=== PATIENT | male | born 1995 | race American Indian/Alaskan Native ===

== ENCOUNTER 2021-05-06 12:40 | Emergency (ER) | payer MEDICAID ==
--- NOTE | 2021-05-06 12:40 | EDM.PDOC ---
ED HPI GENERAL MEDICAL PROBLEM - General Chief Complaint: Neurological Problem Stated Complaint: Seizure Time Seen by Provider: 05/06/21 12:40 Source of Information: Reports: EMS, Old Records, RN, RN Notes Reviewed, Other ([facility] caregiver) History Limitations: Reports: Physical Impairment (No verbal patient, Hx severe M.R.) - History of Present Illness INITIAL COMMENTS - FREE TEXT/NARRATIVE: Pt arrives to ER from [facility] by [facility] with report that pt had a witnessed seizure. Pt is non-verbal at baseline and unable to provide any history. Caregiver states pt had a seizure consisting of mild twitching and posturing. The seizure seemed like it had stopped after a minute or so, but then started again. The seizure would then come and go several times, then persisted for 5 minutes at which time they gave Diazepam 5mg per their protocol. In total the seizure activity lasted 16 minutes per the caregiver. Pt was sedated from the Diazepam, and is apparently fairly sedate at baseline, therefore it was unclear to [facility] staff or EMS it there was any postictal state or not. Onset: Today, Sudden Duration: Resolved Prior to Arrival Location: Reports: Generalized Severity: Severe Improves with: Reports: None Worsens with: Reports: None Associated Symptoms: Reports: No Other Symptoms Treatments MATRIX PLATER: Reports: Other Medication(s) (Diazepam 5mg) - Related Data Allergies Allergy/AdvReac Type Severity Reaction Status Date / Time No Known Allergies Allergy Verified 05/06/21 13:20 Home Meds: Home Meds Adapalene 45 gm TP DAILY 08/03/14 [History] Cetirizine [ZyrTEC] 10 mg PEGTUBE DAILY 08/03/14 [History] Levothyroxine Sodium [Synthroid] 75 mcg PEGTUBE DAILY 08/03/14 [History] Valproic Acid 10 ml PEGTUBE BID 08/03/14 [History] levETIRAcetam [Keppra] 2,000 mg PEGTUBE BID 08/03/14 [History] levOCARNitine [Biocarnitine Sf] 500 mg PEGTUBE TID 08/03/14 [History] Bisacodyl [Dulcolax] 1 supp RECTAL ASDIRECTED PRN 07/13/15 [History] Ketoconazole 1 dose TOP ASDIRECTED 07/13/15 [History] Magnesium Hydroxide [Milk of Magnesia Concentrated] 30 ml GTUBE ASDIRECTED PRN 07/13/15 [History] Multivits w-Min/Ferrous Gluc [Cerovite Liquid] 15 ml PO DAILY 07/13/15 [History] Sulfamethoxazole/Trimethoprim [Septra] 20 ml PO BEDTIME 07/13/15 [History] Cholecalciferol (Vitamin D3) [Vitamin D3] 1,000 mg PEGTUBE DAILY 08/07/15 [History] Menthol/Zinc Oxide [Calmoseptine] 3.5 gm TOP QID 08/07/15 [History] OXcarbazepine [Trileptal] 600 mg GTUBE BID 08/19/15 [History] diazePAM [Valium] 2 ml FTUBE Q8H PRN 08/22/15 [History] Ciclopirox [Loprox 1% Shampoo] 5 ml TP ASDIRECTED 05/06/21 [History] Clindamycin Phosphate [Cleocin T 1% Gel] 1 gm TOP DAILY 05/06/21 [History] Divalproex Sodium [Depakote] 500 mg PEGTUBE BID 05/06/21 [History] Zinc 50 mg PEGTUBE DAILY 05/06/21 [History] Past Medical History HEENT History: Reports: Other (See Below) Other HEENT History: cortical blindness Cardiovascular History: Reports: None Respiratory History: Reports: None Gastrointestinal History: Reports: Other (See Below) Other Gastrointestinal History: gastrostomy, G-tube Genitourinary History: Reports: None Musculoskeletal History: Reports: None (contractures) Neurological History: Reports: Cerebral Palsy, Seizure, Other (See Below) Other Neuro History: quadriplegia Psychiatric History: Reports: Developmental Delay Endocrine/Metabolic History: Reports: Hypothyroidism Hematologic History: Reports: None Immunologic History: Reports: None Oncologic (Cancer) History: Reports: None Dermatologic History: Reports: Other (See Below) Other Dermatologic History: seborrhea, acne - Past Surgical History Musculoskeletal Surgical History: Reports: Hip Replacement Social & Family History - Family History Family Medical History: Unobtainable Cardiac: Reports: None Respiratory: Reports: None GI: Reports: None - Tobacco Use Tobacco Use Status *Q: Never Tobacco User - Living Situation & Occupation Living situation: Reports: Extended Care Facility Occupation: Disabled ED ROS GENERAL - Review of Systems Review Of Systems: Unable To Obtain Reason Not Obtained: non-verbal pt - Physical Exam Exam: See Below Exam Limited By: Physical Impairment General Appearance: WD/WN, Other (Sedate, nonverbal) Eye Exam: Bilateral Eye: Normal Inspection Ears: Normal External Exam Nose: Normal Inspection, No Blood Throat/Mouth: No Airway Compromise, Other. No: Evidence of Tongue Biting Head Exam: Atraumatic, Normocephalic Neck: Normal Inspection Respiratory/Chest: No Respiratory Distress, Lungs Clear Cardiovascular: Regular Rate, Rhythm GI/Abdominal: Normal Bowel Sounds, Soft, Non-Tender (Male) Exam: Deferred Rectal (Males) Exam: Deferred Neuro Exam (Abbreviated): Other (Sedate, no obvious acute deficits. No seizure activity while in ER.) Extremities: Other (Atraumatic. Chronic flexion contractures.) Skin Exam: Warm, Dry, No Rash Course - Vital Signs Last Recorded V/S: Last Vital Signs Temp 97.2 F 05/06/21 13:05 Pulse 70 05/06/21 13:05 Resp 16 05/06/21 13:05 BP 111/86 05/06/21 13:05 Pulse Ox 95 05/06/21 13:05 - Orders/Labs/Meds Orders: Active Orders 24 hr Category Date Time Status Peripheral IV Care [RC] . DIRECTED Care 05/06/21 12:44 Active LEVETIRACETAM, S [REF] Stat Lab 05/06/21 13:00 Received UA RFX KEANU AND CULT IF INDIC [URIN] Stat Lab 05/06/21 12:43 Ordered VALPROIC ACID [REF] Stat Lab 05/06/21 13:00 Received Sodium Chloride 0.9% [Normal Saline] 1,000 ml Med 05/06/21 12:45 Active IV .BOLUS Sodium Chloride 0.9% [Saline Flush] Med 05/06/21 12:44 Active 10 ml FLUSH ASDIRECTED PRN Peripheral IV Insertion Adult [OM.PC] Stat Oth 05/06/21 12:43 Ordered Medication Orders Sodium Chloride (Normal Saline) 1,000 mls @ 999 mls/hr IV .BOLUS ONE Stop: 05/06/21 13:45 Sodium Chloride (Sodium Chloride 0.9% 10 Ml Syringe) 10 ml FLUSH ASDIRECTED PRN PRN Reason: Keep Vein Open Labs: Laboratory Tests 10/05/21 10/05/21 Range/Units 13:00 13:00 WBC 5.5 (5.0-10.0) 10^3/uL RBC 4.16 L (4.6-6.2) 10^6/uL Hgb 12.8 L (14.0-18.0) g/dL Hct 37.0 L (40.0-54.0) % MCV 88.9 D (80-100) fL MCH 30.8 (27.0-34.0) pg MCHC 34.6 (33.0-35.0) g/dL Plt Count 210 (150-450) 10^3/uL Neut % (Auto) 55.0 (42.2-75.2) % Lymph % (Auto) 31.0 (20.5-50.1) % [place] % (Auto) 12.7 H (2-8) % Eos % (Auto) 1.1 (1.0-3.0) % Baso % (Auto) 0.2 (0.0-1.0) % Sodium 134 L (136-145) mmol/L Potassium 4.5 (3.5-5.1) mmol/L Chloride 96 L (98-107) mmol/L Carbon Dioxide 29 (21-32) mmol/L Anion Gap 13.5 H (7-13) mEq/L BUN 8 (7-18) mg/dL Creatinine 0.46 L (0.70-1.30) mg/dL Est Cr Clr Drug Dosing 217.68 mL/min Estimated GFR (MDRD) > 60 BUN/Creatinine Ratio 17.4 (No establ ref range) Glucose 71 (70-99) mg/dL Calcium 9.2 (8.5-10.1) mg/dL Magnesium 2.0 (1.8-2.4) mg/dL Total Bilirubin 0.2 (0.2-1.0) mg/dL AST 14 L (15-37) U/L ALT 28 (16-63) U/L Alkaline Phosphatase 61 (46-116) U/L Lactate Dehydrogenase 139 (85-227) U/L Creatine Kinase 122 (39-308) U/L C-Reactive Protein 1.4 H (0.0-0.9) mg/dL Total Protein 8.3 H (6.4-8.2) g/dL Albumin 3.9 (3.4-5.0) g/dL Globulin 4.4 Albumin/Globulin Ratio 0.9 Meds: Medications Generic Name Dose Route Start Last Admin Trade Name Freq PRN Reason Stop Dose Admin Sodium Chloride 1,000 mls @ 999 mls/hr 05/06/21 12:45 Normal Saline IV 05/06/21 13:45 .BOLUS ONE Sodium Chloride 10 ml 05/06/21 12:44 Sodium Chloride 0.9% 10 Ml Syringe FLUSH ASDIRECTED PRN Keep Vein Open Discontinued Medications Generic Name Dose Route Start Last Admin Trade Name Freq PRN Reason Stop Dose Admin Levetiracetam 1,500 mg/ Premix 300 mls @ 1,200 mls/hr 05/06/21 12:45 IV 05/06/21 12:46 ONETIME ONE Levetiracetam Confirm 05/06/21 13:33 Levetiracetam In Nacl (Iso-Os) Administered 05/06/21 13:34 Dose 300 mls @ as directed .ROUTE .STK-MED ONE Departure - Departure Time of Disposition: 14:00 Disposition: Home, Self-Care 01 Condition: Good Clinical Impression: Seizure - Discharge Information *PRESCRIPTION DRUG MONITORING PROGRAM REVIEWED*: No *COPY OF PRESCRIPTION DRUG MONITORING REPORT IN PATIENT LILLIE: No Instructions: Seizure, Adult, [id number] Forms: ED Department Discharge Additional Instructions: No change to medication regimen. Follow up with neurologist if there is an increase in seizure frequency or pattern. Sepsis Event Note (ED) - Focused Exam Vital Signs: Vital Signs Temp Pulse Resp BP Pulse Ox 05/06/21 13:05 97.2 F 70 16 111/86 95 - My Orders Last 24 Hours: My Active Orders 05/06/21 12:43 UA RFX KEANU AND CULT IF INDIC [URIN] Stat Peripheral IV Insertion Adult [OM.PC] Stat 05/06/21 12:44 Peripheral IV Care [RC] . DIRECTED Sodium Chloride 0.9% [Saline Flush] 10 ml FLUSH ASDIRECTED PRN 05/06/21 12:45 Sodium Chloride 0.9% [Normal Saline] 1,000 ml IV .BOLUS 05/06/21 13:00 LEVETIRACETAM, S [REF] Stat VALPROIC ACID [REF] Stat - Assessment/Plan Last 24 Hours: My Active Orders 05/06/21 12:43 UA RFX KEANU AND CULT IF INDIC [URIN] Stat Peripheral IV Insertion Adult [OM.PC] Stat 05/06/21 12:44 Peripheral IV Care [RC] . DIRECTED Sodium Chloride 0.9% [Saline Flush] 10 ml FLUSH ASDIRECTED PRN 05/06/21 12:45 Sodium Chloride 0.9% [Normal Saline] 1,000 ml IV .BOLUS 05/06/21 13:00 LEVETIRACETAM, S [REF] Stat VALPROIC ACID [REF] Stat
[2021-05-06] MEDS ORDERED: Sodium Chloride 0.9% 10 ML Syringe FLUSH PRN (12:44)
[2021-05-06] MEDS ORDERED: Sodium Chloride 0.9% 1,000 ML IV ONE (12:45)
[2021-05-06] MEDS ORDERED: levETIRAcetam in NaCl (iso-os) 1,500 MG in Premix Bag 1 BAG IV ONE ×2 (12:45)
[2021-05-06 13:13] VITALS: BP 111/86; PULSE 70
[2021-05-06 13:28] LABS: ANION GAP 13.5 mEq/L (7-13); CHLORIDE,CL 96 mmol/L (98-107); SODIUM,NA 134 mmol/L (136-145)
== END 2021-05-06 14:50 | disposition home or self-care (01) ==
LOC: DL.ED 12:40
DX: R56.9 Unspecified convulsions (principal); E03.9 Hypothyroidism, unspecified; Z79.899 Other long term (current) drug therapy
CPT/HCPCS: 36415; 80053; 80164; 80177; 81001; 82550; 83615; 83735; 85025; 86140; 96374; 99285-25; J1953; J7030

== ENCOUNTER 2021-07-13 07:08 | Emergency (ER) | payer MEDICAID ==
[2021-07-13 07:22] VITALS: BP 112/62; PULSE 58
[2021-07-13] MEDS ORDERED: levETIRAcetam in NaCl (iso-os) 500 MG in Premix Bag 1 BAG IV ONE ×2 (07:48)
--- NOTE | 2021-07-13 07:58 | EDM.PDOC ---
ED HPI GENERAL MEDICAL PROBLEM - General Chief Complaint: Neuro Symptoms/Deficits Stated Complaint: AMBULANCE Time Seen by Provider: 07/13/21 07:40 Source of Information: Reports: Provider ([facility] home provider) History Limitations: Reports: Other (Non verbal) - History of Present Illness INITIAL COMMENTS - FREE TEXT/NARRATIVE: This 26 yo male patient was brought to the ED by [facility] due to a seizure. The patient's night care provider reports she had just given the patient his medications via his feeding tube and was cleaning the med cart. The provider reports she heard a noise from the patient then noticed his right leg was stretched out and the left arm was "shaking". The provider also reports the patient's eyes had rolled up. The entire episode lasted 22 minutes and the pa tient was given Valium per protocol. Upon arrival, the patient had no seizure activity, but was sedated by medications given at [facility] Home. Onset: Today Duration: Minutes: (22), Constant, Resolved Prior to Arrival Location: Reports: Other (as described in narrative) Quality: Reports: Other Severity: Moderate Improves with: Reports: Medication Worsens with: Reports: None Context: Reports: Other - Related Data Allergies Allergy/AdvReac Type Severity Reaction Status Date / Time No Known Allergies Allergy Verified 07/13/21 07:23 Home Meds: Home Meds Adapalene 45 gm TP DAILY 08/03/14 [History] Cetirizine [ZyrTEC] 10 mg GTUBE DAILY 08/03/14 [History] Levothyroxine Sodium [Synthroid] 75 mcg GTUBE DAILY 08/03/14 [History] Valproic Acid 375 mg PEGTUBE BID 08/03/14 [History] levETIRAcetam [Keppra] 2,000 mg GTUBE BID 08/03/14 [History] levOCARNitine [Biocarnitine Sf] 500 mg PEGTUBE TID 08/03/14 [History] Bisacodyl [Dulcolax] 1 supp RECTAL ASDIRECTED PRN 07/13/15 [History] Ketoconazole 1 dose TOP ASDIRECTED 07/13/15 [History] Magnesium Hydroxide [Milk of Magnesia Concentrated] 30 ml GTUBE ASDIRECTED PRN 07/13/15 [History] Cholecalciferol (Vitamin D3) [Vitamin D3] 1,000 mg GTUBE DAILY 08/07/15 [History] Menthol/Zinc Oxide [Calmoseptine] 3.5 gm TOP QID 08/07/15 [History] OXcarbazepine [Trileptal] 600 mg GTUBE BID 08/19/15 [History] diazePAM [Valium] 2 ml GTUBE Q8H PRN 08/22/15 [History] Ciclopirox [Loprox 1% Shampoo] 5 ml TP ASDIRECTED 05/06/21 [History] Clindamycin Phosphate [Cleocin T 1% Gel] 1 gm TOP DAILY 05/06/21 [History] Divalproex Sodium [Depakote] 500 mg GTUBE BID 05/06/21 [History] Calcium Carb/Mag Ox/Zinc Gluc [Qiyyxod-Capriuqfs-Ujuw] 1 tab GTUBE DAILY 07/13/21 [History] Past Medical History HEENT History: Reports: Other (See Below) Other HEENT History: cortical blindness Cardiovascular History: Reports: None Respiratory History: Reports: None Gastrointestinal History: Reports: Chronic Constipation, Other (See Below) Other Gastrointestinal History: gastrostomy, G-tube Genitourinary History: Reports: Urinary Incontinence Musculoskeletal History: Reports: None Neurological History: Reports: Cerebral Palsy, Seizure, Other (See Below) Other Neuro History: quadriplegia Psychiatric History: Reports: Developmental Delay Endocrine/Metabolic History: Reports: Hypothyroidism Hematologic History: Reports: None Immunologic History: Reports: None Oncologic (Cancer) History: Reports: None Dermatologic History: Reports: Other (See Below) Other Dermatologic History: seborrhea, acne - Infectious Disease History Infectious Disease History: Reports: None - Past Surgical History Musculoskeletal Surgical History: Reports: Hip Replacement Other Musculoskeletal Surgeries/Procedures:: contractures of both arms Social & Family History - Family History Family Medical History: Unobtainable Cardiac: Reports: None Respiratory: Reports: None GI: Reports: None - Tobacco Use Tobacco Use Status *Q: Never Tobacco User - Caffeine Use Caffeine Use: Reports: None - Recreational Drug Use Recreational Drug Use: No - Living Situation & Occupation Living situation: Reports: Extended Care Facility Occupation: Disabled ED ROS GENERAL - Review of Systems Review Of Systems: Comprehensive ROS is negative, except as noted in HPI. - Physical Exam Exam: See Below Exam Limited By: Other (Non-verbal) General Appearance: Other (sedated from medications given for seizure) Eye Exam: Bilateral Eye: Other (Pupils were sluggish) Ears: Normal External Exam, Normal Canal, Hearing Grossly Normal, Normal TMs Nose: Normal Inspection, Normal Mucosa, No Blood Throat/Mouth: Normal Inspection, Normal Lips, Normal Teeth, Normal Gums, Normal Oropharynx, Normal Voice, No Airway Compromise Head Exam: Atraumatic, Normocephalic Neck: Normal Inspection Respiratory/Chest: No Respiratory Distress, Lungs Clear, Normal Breath Sounds, No Accessory Muscle Use, Chest Non-Tender Cardiovascular: Normal Peripheral Pulses, Regular Rate, Rhythm, No Edema, No Gallop, No JVD, No Murmur, No Rub GI/Abdominal: Other (PEG tube site was erythematous with debbie) (Male) Exam: Deferred Rectal (Males) Exam: Deferred Neuro Exam (Abbreviated): Other (The patient was sedated, but non-verbal at baseline) Back Exam: Normal Inspection, Full Range of Motion, NT Extremities: Normal Inspection, Normal Range of Motion, Non-Tender, No Pedal Edema, Normal Capillary Refill Psychiatric: Normal Affect, Normal Mood Skin Exam: Warm, Dry, Intact, Normal Color, No Rash Course - Vital Signs Last Recorded V/S: Last Vital Signs Temp 96.7 F L 07/13/21 07:21 Pulse 58 L 07/13/21 07:21 Resp 16 07/13/21 07:21 BP 112/62 07/13/21 07:21 Pulse Ox 94 L 07/13/21 07:21 - Orders/Labs/Meds Orders: Active Orders 24 hr Category Date Time Status CULTURE BLOOD [BC] Stat Lab 07/13/21 07:36 Received CULTURE WOUND [RM] Stat Lab 07/13/21 07:20 Received LEVETIRACETAM, S [REF] Urgent Lab 07/13/21 07:36 Received REFLEX LACTIC ACID YES OR NO [CHEM] Routine Lab 07/13/21 08:09 Received UA RFX KEANU AND CULT IF INDIC [URIN] Urgent Lab 07/13/21 07:23 Ordered Labs: Laboratory Tests 07/13/21 07/13/21 07/13/21 Range/Units 07:36 07:36 07:36 WBC 5.9 (5.0-10.0) 10^3/uL RBC 3.89 L (4.6-6.2) 10^6/uL Hgb 11.9 L (14.0-18.0) g/dL Hct 34.2 L (40.0-54.0) % MCV 87.9 (80-100) fL MCH 30.6 (27.0-34.0) pg MCHC 34.8 (33.0-35.0) g/dL Plt Count 185 (150-450) 10^3/uL Neut % (Auto) 40.7 L (42.2-75.2) % Lymph % (Auto) 45.6 (20.5-50.1) % [place] % (Auto) 11.3 H (2-8) % Eos % (Auto) 2.2 (1.0-3.0) % Baso % (Auto) 0.2 (0.0-1.0) % Sodium 126 L (136-145) mmol/L Potassium 4.0 (3.5-5.1) mmol/L Chloride 90 L (98-107) mmol/L Carbon Dioxide 26 (21-32) mmol/L Anion Gap 14.0 H (7-13) mEq/L BUN 7 (7-18) mg/dL Creatinine 0.36 L (0.70-1.30) mg/dL Est Cr Clr Drug Dosing 275.68 mL/min Estimated GFR (MDRD) > 60 BUN/Creatinine Ratio 19.4 (No establ ref range) Glucose 88 (70-99) mg/dL Lactic Acid 2.4 H* (0.4-2.0) mmol/L Calcium 8.8 (8.5-10.1) mg/dL Total Bilirubin 0.2 (0.2-1.0) mg/dL AST 22 (15-37) U/L ALT 30 (16-63) U/L Alkaline Phosphatase 50 (46-116) U/L Total Protein 7.3 (6.4-8.2) g/dL Albumin 3.4 (3.4-5.0) g/dL Globulin 3.9 Albumin/Globulin Ratio 0.9 Meds: Medications Discontinued Medications Generic Name Dose Route Start Last Admin Trade Name Freq PRN Reason Stop Dose Admin Levetiracetam 500 mg/ Premix 100 mls @ 400 mls/hr 07/13/21 07:48 07/13/21 07:57 IV 07/13/21 07:49 400 mls/hr ONETIME ONE Administration Departure - Departure Time of Disposition: 08:56 Disposition: Home, Self-Care 01 Condition: Fair Clinical Impression: Seizure - Discharge Information *PRESCRIPTION DRUG MONITORING PROGRAM REVIEWED*: Not Applicable *COPY OF PRESCRIPTION DRUG MONITORING REPORT IN PATIENT LILLIE: Not Applicable Instructions: Seizure, Adult, [id number] Forms: ED Department Discharge Care Plan Goals: The patient's caregiver was advised of the examination and lab results during the visit. The patient was given an IV dose of Keppra while in the ED. There will be additional lab results available on Wednesday or Wednesday (Keppra level). The patient's sodium level was again low during the visit today (similar to previous visits). If the patient has any additional symptoms or concerns, the patient should either return to the emergency department or visit his primary care facility. Sepsis Event Note (ED) - Evaluation Sepsis Screening Result: No Definite Risk - Focused Exam Vital Signs: Vital Signs Temp Pulse Resp BP Pulse Ox 07/13/21 07:21 96.7 F L 58 L 16 112/62 94 L - My Orders Last 24 Hours: My Active Orders 07/13/21 07:20 CULTURE WOUND [RM] Stat 07/13/21 07:23 UA RFX KEANU AND CULT IF INDIC [URIN] Urgent 07/13/21 07:36 CULTURE BLOOD [BC] Stat LEVETIRACETAM, S [REF] Urgent 07/13/21 08:09 REFLEX LACTIC ACID YES OR NO [CHEM] Routine - Assessment/Plan Last 24 Hours: My Active Orders 07/13/21 07:20 CULTURE WOUND [RM] Stat 07/13/21 07:23 UA RFX KEANU AND CULT IF INDIC [URIN] Urgent 07/13/21 07:36 CULTURE BLOOD [BC] Stat LEVETIRACETAM, S [REF] Urgent 07/13/21 08:09 REFLEX LACTIC ACID YES OR NO [CHEM] Routine
[2021-07-13 08:04] LABS: CHLORIDE,CL 90 mmol/L (98-107); SODIUM,NA 126 mmol/L (136-145)
== END 2021-07-13 09:25 | disposition home or self-care (01) ==
LOC: DL.ED 07:08
DX: R56.9 Unspecified convulsions (principal); E03.9 Hypothyroidism, unspecified; Z79.899 Other long term (current) drug therapy
CPT/HCPCS: 36415; 80053; 80177; 83605; 85025; 87040; 87070; 87077; 87186; 96374; 99284; J1953

== ENCOUNTER 2021-07-17 09:10 | Emergency (ER) | payer MEDICAID ==
[2021-07-17 09:16] VITALS: BP 107/60; PULSE 51
--- NOTE | 2021-07-17 09:30 | EDM.PDOC ---
ED HPI GENERAL MEDICAL PROBLEM - General Chief Complaint: Neuro Symptoms/Deficits Stated Complaint: AMBULANCE Time Seen by Provider: 07/17/21 09:29 Source of Information: Reports: EMS, Old Records, Provider (SWETHA Barrios at [facility])), RN, RN Notes Reviewed History Limitations: Reports: Language Barrier (Cognitive delays at baseline) - History of Present Illness INITIAL COMMENTS - FREE TEXT/NARRATIVE: Shin is a 26 y/o male with a history of seizures and TBI who presents to the ED via [facility] at the request of his [place] [facility] staff [facility]. [facility] the patient was evaluated by his PCP four days ago and received a full physical exam given recent increase in seizure activity and length. She notes the patient was given his levetiracetam 2gm, divalproex 500mg, and oxcarbazepine 600mg this morning via his J-tube; he has not missed any doses. Denis states the patient was thought to be displaying seizure-like activity by a new staff member, however upon further discussion with the staff it may have been hand-flapping, as the patient is known to do. The patient was given diazepam 5mg IN en route. Upon arrival to this facility the patient is lethargic, however he is maintaining his airway with appropriate vital signs. - Related Data Allergies Allergy/AdvReac Type Severity Reaction Status Date / Time No Known Allergies Allergy Verified 07/13/21 07:23 Home Meds: Home Meds Adapalene 45 gm TP DAILY 08/03/14 [History] Cetirizine [ZyrTEC] 10 mg GTUBE DAILY 08/03/14 [History] Levothyroxine Sodium [Synthroid] 75 mcg GTUBE DAILY 08/03/14 [History] Valproic Acid 375 mg PEGTUBE BID 08/03/14 [History] levETIRAcetam [Keppra] 2,000 mg GTUBE BID 08/03/14 [History] levOCARNitine [Biocarnitine Sf] 500 mg PEGTUBE TID 08/03/14 [History] Bisacodyl [Dulcolax] 1 supp RECTAL ASDIRECTED PRN 07/13/15 [History] Ketoconazole 1 dose TOP ASDIRECTED 07/13/15 [History] Magnesium Hydroxide [Milk of Magnesia Concentrated] 30 ml GTUBE ASDIRECTED PRN 07/13/15 [History] Cholecalciferol (Vitamin D3) [Vitamin D3] 1,000 mg GTUBE DAILY 08/07/15 [History] Menthol/Zinc Oxide [Calmoseptine] 3.5 gm TOP QID 08/07/15 [History] OXcarbazepine [Trileptal] 600 mg GTUBE BID 08/19/15 [History] diazePAM [Valium] 2 ml GTUBE Q8H PRN 08/22/15 [History] Ciclopirox [Loprox 1% Shampoo] 5 ml TP ASDIRECTED 05/06/21 [History] Clindamycin Phosphate [Cleocin T 1% Gel] 1 gm TOP DAILY 05/06/21 [History] Divalproex Sodium [Depakote] 500 mg GTUBE BID 05/06/21 [History] Calcium Carb/Mag Ox/Zinc Gluc [Ykcclye-Qqzcjbwny-Bnzp] 1 tab GTUBE DAILY 07/13/21 [History] Past Medical History HEENT History: Reports: Other (See Below) Other HEENT History: cortical blindness Cardiovascular History: Reports: None Respiratory History: Reports: None Gastrointestinal History: Reports: Chronic Constipation, Other (See Below) Other Gastrointestinal History: gastrostomy, G-tube Genitourinary History: Reports: Urinary Incontinence Musculoskeletal History: Reports: None Neurological History: Reports: Cerebral Palsy, Seizure, Other (See Below) Other Neuro History: quadriplegia Psychiatric History: Reports: Developmental Delay Endocrine/Metabolic History: Reports: Hypothyroidism Hematologic History: Reports: None Immunologic History: Reports: None Oncologic (Cancer) History: Reports: None Dermatologic History: Reports: Other (See Below) Other Dermatologic History: seborrhea, acne - Infectious Disease History Infectious Disease History: Reports: None - Past Surgical History Musculoskeletal Surgical History: Reports: Hip Replacement Other Musculoskeletal Surgeries/Procedures:: contractures of both arms Social & Family History - Family History Family Medical History: Unobtainable Cardiac: Reports: None Respiratory: Reports: None GI: Reports: None - Tobacco Use Tobacco Use Status *Q: Unknown Ever Used Tobacco - Caffeine Use Caffeine Use: Reports: None - Living Situation & Occupation Living situation: Reports: Extended Care Facility Occupation: Disabled ED ROS GENERAL - Review of Systems Review Of Systems: Comprehensive ROS is negative, except as noted in HPI. - Physical Exam Exam: See Below Exam Limited By: Physical Impairment (TBI) General Appearance: Lethargic, Thin Eye Exam: Bilateral Eye: EOMI, Normal Inspection, PERRL (4mm) Ears: Normal External Exam, Normal Canal, Hearing Grossly Normal, Normal TMs Nose: Normal Inspection, Normal Mucosa, No Blood Throat/Mouth: Normal Inspection, Normal Teeth, Normal Oropharynx, Normal Voice, No Airway Compromise, Evidence of Tongue Biting Head Exam: Atraumatic, Normocephalic Neck: Normal Inspection, Supple, Full Range of Motion Respiratory/Chest: No Respiratory Distress, Lungs Clear, Normal Breath Sounds, No Accessory Muscle Use Cardiovascular: Normal Peripheral Pulses, Regular Rate, Rhythm, No Edema, No Gallop, No JVD, No Murmur, No Rub, Bradycardia GI/Abdominal: Normal Bowel Sounds, Soft, No Distention, No Abnormal Bruit, No Mass, Pelvis Stable, Other (J-tube in place, site clean and dry with dressing in place) (Male) Exam: Deferred Rectal (Males) Exam: Deferred Neuro Exam (Abbreviated): Other (Non-verbal at baseline; Lethargic) Extremities: No Pedal Edema, Normal Capillary Refill, Limited Range of Motion (Contractures to bilateral upper extremities), Other Skin Exam: Warm, Dry, Intact, Normal Color, No Rash. No: Cyanosis, Jaundice, Mottled, Pallor Course - Vital Signs Last Recorded V/S: Last Vital Signs Temp 96.6 F L 07/17/21 09:10 Pulse 51 L 07/17/21 09:10 Resp 12 07/17/21 09:10 BP 107/60 07/17/21 09:10 Pulse Ox 99 07/17/21 09:10 - Orders/Labs/Meds Labs: Laboratory Tests 07/17/21 07/17/21 07/17/21 Range/Units 09:28 09:28 09:28 WBC 8.3 (5.0-10.0) 10^3/uL RBC 3.86 L (4.6-6.2) 10^6/uL Hgb 11.8 L (14.0-18.0) g/dL Hct 34.5 L (40.0-54.0) % MCV 89.4 (80-100) fL MCH 30.6 (27.0-34.0) pg MCHC 34.2 (33.0-35.0) g/dL Plt Count 186 (150-450) 10^3/uL Neut % (Auto) 53.5 (42.2-75.2) % Lymph % (Auto) 30.5 (20.5-50.1) % Hubbard % (Auto) 15.0 H (2-8) % Eos % (Auto) 1.0 (1.0-3.0) % Baso % (Auto) 0.0 (0.0-1.0) % Sodium 133 L (136-145) mmol/L Potassium 3.7 (3.5-5.1) mmol/L Chloride 96 L (98-107) mmol/L Carbon Dioxide 29 (21-32) mmol/L Anion Gap 11.7 (7-13) mEq/L BUN 8 (7-18) mg/dL Creatinine 0.36 L (0.70-1.30) mg/dL Est Cr Clr Drug Dosing 235.93 mL/min Estimated GFR (MDRD) > 60 BUN/Creatinine Ratio 22.2 (No establ ref range) Glucose 93 (70-99) mg/dL Lactic Acid 1.6 (0.4-2.0) mmol/L Calcium 8.7 (8.5-10.1) mg/dL Magnesium 1.9 (1.8-2.4) mg/dL Total Bilirubin 0.2 (0.2-1.0) mg/dL AST 17 (15-37) U/L ALT 29 (16-63) U/L Alkaline Phosphatase 50 (46-116) U/L C-Reactive Protein < 0.2 (0.0-0.9) mg/dL Total Protein 7.3 (6.4-8.2) g/dL Albumin 3.4 (3.4-5.0) g/dL Globulin 3.9 Albumin/Globulin Ratio 0.9 - Radiology Interpretation Free Text/Narrative:: [facility] Final Radiology Report Call: [phone] assistance Online chat: [email or web address] Name: SHIN PIERRE Age: 26Years M Date: 07/17/2021 SSN: -- : [id number] Study: CT HEAD WO CONT Requesting Physician: Apple Stanford Images: 150 Addl Studies: Provided Clinical History: Seizures despite antiepileptics Contrast: Without Contrast Medium: Contrast Amount: Contrast Method: Page 1 of 2 PROCEDURE INFORMATION: Exam: CT Head Without Contrast Exam date and time: 07/17/2021 11:04 AM Age: 26 years old Clinical indication: Other: Seizures; Additional info: Seizures despite antiepileptics TECHNIQUE: Imaging protocol: Computed tomography of the head without contrast. Radiation optimization: All CT scans at this facility use at least one of these dose optimization techniques: automated exposure control; mA and/or kV adjustment per patient size (includes targeted exams where dose is matched to clinical indication); or iterative reconstruction. COMPARISON: No relevant prior studies available. FINDINGS: Brain: Prominent sulci. Patchy hypodensity of the cerebral white matter which are nonspecific but likely secondary to microangiopathic changes. Cerebral ventricles: The ventricles are prominent secondary to diffuse volume loss/atrophy. Paranasal sinuses: Visualized sinuses are unremarkable. No fluid levels. Mastoid air cells: Visualized mastoid air cells are well aerated. Bones/joints: Unremarkable. No acute fracture. Soft tissues: Unremarkable. IMPRESSION: Chronic age related changes but no evidence of acute intracranial pathology. Thank you for allowing us to participate in the care of your patient. Dictated and Authenticated by: Indiana Ramirez MD 07/17/2021 11:38 AM Central Time ([place] & [place]) - Re-Assessments/Exams Free Text/Narrative Re-Assessment/Exam: 07/17/[address] obtained given increase in seizure activity. Findings of examination, lab work, and imaging reviewed with SW[facility]HA Barrios from [facility]. Instructed to follow up with primary care provider and neurology regarding todays visit. Red flag signs and symptoms which would warrant immediate reevaluation reviewed. Denis verbalized understanding and agreement with the plan of care. Departure - Departure Time of Disposition: 11:47 Disposition: DC/Tfer to [facility] Condition: Fair Clinical Impression: Seizure, History of seizure - Discharge Information *PRESCRIPTION DRUG MONITORING PROGRAM REVIEWED*: Not Applicable *COPY OF PRESCRIPTION DRUG MONITORING REPORT IN PATIENT LILLIE: Not Applicable Instructions: Seizure, Adult Referrals: PCP,None [Primary Care Provider] - Forms: ED Department Discharge Additional Instructions: 1.) Continue on Shin's previously prescribed medications, including PRN epilepsy medications. 2.) Follow up with Dr. Mcclure's office regarding recent seizure activity; request his follow-up to be sooner than his previously scheduled 07/28/21. 3.) Continue on previous diet and activity recommendations. 4.) Return to the emergency department with any worsening symptoms or seizure activity that does not resolve with PRN antiepileptic medications. Sepsis Event Note (ED) - Evaluation Sepsis Screening Result: No Definite Risk
[2021-07-17 09:56] LABS: ANION GAP 11.7 mEq/L (7-13); CHLORIDE,CL 96 mmol/L (98-107); SODIUM,NA 133 mmol/L (136-145)
--- NOTE | 2021-07-17 11:39 | CT ---
PROCEDURE INFORMATION: Exam: CT Head Without Contrast Exam date and time: 07/17/2021 11:04 AM Age: 26 years old Clinical indication: Other: Seizures; Additional info: Seizures despite antiepileptics TECHNIQUE: Imaging protocol: Computed tomography of the head without contrast. Radiation optimization: All CT scans at this facility use at least one of these dose optimization techniques: automated exposure control; mA and/or kV adjustment per patient size (includes targeted exams where dose is matched to clinical indication); or iterative reconstruction. COMPARISON: No relevant prior studies available. FINDINGS: Brain: Prominent sulci. Patchy hypodensity of the cerebral white matter which are nonspecific but likely secondary to microangiopathic changes. Cerebral ventricles: The ventricles are prominent secondary to diffuse volume loss/atrophy. Paranasal sinuses: Visualized sinuses are unremarkable. No fluid levels. Mastoid air cells: Visualized mastoid air cells are well aerated. Bones/joints: Unremarkable. No acute fracture. Soft tissues: Unremarkable. IMPRESSION: Chronic age related changes but no evidence of acute intracranial pathology.
== END 2021-07-17 12:27 ==
LOC: DL.ED 09:10
DX: R56.9 Unspecified convulsions (principal); E03.9 Hypothyroidism, unspecified; Z79.899 Other long term (current) drug therapy
CPT/HCPCS: 36415; 70450; 80053; 83605; 83735; 85025; 86140; 99284-25

== ENCOUNTER 2022-12-21 12:00 | Inpatient (IN) | payer MEDICAID ==
[2022-12-21] MEDS ORDERED: Valproic Acid 250 MG/5 ML Soln 5 ML UD Cup PO ONE (12:29)
[2022-12-21 12:33] LABS: HEMATOCRIT 29.2 % (40.0-54.0); MEAN CORPUSCULAR HEMOGLOBIN 29.2 pg (27.0-34.0); MEAN CORPUSCULAR HGB CONC 34.2 g/dL (33.0-35.0); MEAN CORPUSCULAR VOLUME 85.4 fL (80-100); PLATELET COUNT,PLT 126 10^3/uL (150-450); RED BLOOD CELL COUNT 3.42 10^6/uL (4.6-6.2); WHITE BLOOD CELL COUNT,WBC 12.9 10^3/uL (5.0-10.0)
[2022-12-21 12:39] LABS: EOSINOPHILS PERCENT AUTO 0.1 % (1.0-3.0); MONOCYTES PERCENT AUTO 6.8 % (2-8)
[2022-12-21 12:57] LABS: LACTIC ACID 1.2 mmol/L (0.4-2.0)
[2022-12-21 12:58] LABS: BAND PERCENT MAN 22 %; LYMPHOCYTES PERCENT MAN 13 % (20-50); MONOCYTES PERCENT MAN 6 % (2-8); SEG NEUTROPHILS PERCENT MAN 59 % (42-75)
[2022-12-21 13:04] LABS: ALANINE AMINOTRANSFERASE,ALT 25 U/L (16-63); ALBUMIN 2.3 g/dL (3.4-5.0); ALKALINE PHOSPHATASE 105 U/L (46-116); ASPARTATE AMNIOTRANSFERASE,AST 17 U/L (15-37); BILIRUBIN TOTAL 0.2 mg/dL (0.2-1.0); BLOOD UREA NITROGEN,BUN 9 mg/dL (7-18); CALCIUM 9.4 mg/dL (8.5-10.1); CARBON DIOXIDE,CO2 25 mmol/L (21-32); CHLORIDE,CL 92 mmol/L (98-107); CREATININE 0.36 mg/dL (0.70-1.30); EST CRCL DRUG DOSING (CG) 273.22 mL/min; GLUCOSE RANDOM 113 mg/dL (70-99); POTASSIUM,K 4.2 mmol/L (3.5-5.1); PROTEIN TOTAL,TP 6.9 g/dL (6.4-8.2)
[2022-12-21 13:11] LABS: ANION GAP 12.2 mEq/L (7-13); SODIUM,NA 125 mmol/L (136-145)
[2022-12-21 13:12] LABS: ESTIMATED GFR 156 mL/min (>=60)
[2022-12-21 13:19] LABS: C-REACTIVE PROTEIN > 36.0 mg/dL (0.0-0.9)
[2022-12-21] MEDS ORDERED: Azithromycin 500 MG in Sodium Chloride 0.9% 250 ML IV ONE (13:23)
[2022-12-21] MEDS ORDERED: cefTRIAXone 2 GM Vial IVPUSH ONE (13:23)
[2022-12-21] MEDS ORDERED: Sodium Chloride 0.9% 1,000 ML IV ONE (13:40)
[2022-12-21] MEDS ORDERED: Acetaminophen 650 MG Supp RECTAL PRN (15:01)
[2022-12-21] MEDS ORDERED: Polyethylene Glycol 3350 Powder 17 GM Packet PO PRN (15:01)
[2022-12-21] MEDS ORDERED: Magnesium Hydroxide 400 MG/5 ML Susp 30 ML Cup PO PRN (15:01)
[2022-12-21] MEDS ORDERED: HYDROmorphone 0.5 MG/0.5 ML Syringe IVPUSH PRN (15:01)
[2022-12-21] MEDS ORDERED: Ketorolac 30 MG/ML SDV IVPUSH PRN (15:01)
[2022-12-21] MEDS ORDERED: Ondansetron 4 MG/2 ML SDV IVPUSH PRN (15:01)
[2022-12-21] MEDS ORDERED: Albuterol/Ipratropium 3.0-0.5 MG/3 ML Neb Soln NEB PRN (15:01)
[2022-12-21] MEDS ORDERED: guaiFENesin/Dextromethorphan 100-10 MG/5 ML Soln 5 ML Cup PO PRN (15:05)
[2022-12-21] MEDS ORDERED: Metoprolol Tartrate 5 MG/5 ML SDV IVPUSH PRN (15:08)
[2022-12-21] MEDS: Sodium Chloride 0.9% 1,000 ML IV SCH (15:29)
[2022-12-21] MEDS: Piperacillin/Tazobactam 3.375 GM in Sodium Chloride 0.9% 100 ML IV SCH ×2 (15:51→22:22)
[2022-12-21] MEDS ORDERED: Diazepam 5 MG Tab GTUBE PRN (16:55)
[2022-12-21] MEDS ORDERED: BISACODYL 10 MG PRN (16:55)
[2022-12-21] MEDS ORDERED: Bisacodyl 10 MG Supp RECTAL PRN (16:55)
[2022-12-21] MEDS ORDERED: Divalproex Sodium Delayed-Release 125 MG Cap.Sprink GTUBE SCH ×2 (17:00→21:00)
[2022-12-21] MEDS ORDERED: Non-Formulary Medication 1 Each (Divalproex Sodium 500 MG Tablet.Dr) GTUBE SCH (17:00)
[2022-12-21] MEDS ORDERED: Non-Formulary Medication 1 Each (Ketoconazole [Ketoconazole] 120 ML Shampoo) TOP SCH (17:00)
[2022-12-21] MEDS ORDERED: TRETINOIN 0.025% TOP SCH (17:00)
[2022-12-21] MEDS ORDERED: SALICYLIC ACID TOP SCH (17:00)
[2022-12-21] MEDS: Albuterol/Ipratropium 3.0-0.5 MG/3 ML Neb Soln NEB SCH (18:08)
[2022-12-21] MEDS: Pantoprazole 40 MG Vial IVPUSH SCH (20:25)
[2022-12-21] MEDS: guaiFENesin 600 MG Tab.ER PO SCH (21:43)
[2022-12-21] MEDS: levETIRAcetam 500 MG Tab GTUBE SCH (21:43)
[2022-12-21] MEDS: Saccharomyces Boulardii (Probiotic) 250 MG Cap PO SCH (21:43)
[2022-12-21] MEDS: Enoxaparin 40 MG/0.4 ML Syringe SUBCUT SCH (21:44)
[2022-12-21] MEDS: OXcarbazepine 300 MG Tab GTUBE SCH (21:44)
[2022-12-21] MEDS: Valproic Acid 250 MG/5 ML Soln 5 ML UD Cup GTUBE SCH (22:13)
[2022-12-21] MEDS: Acetaminophen Soln 160 MG/5 ML UD Cup GTUBE PRN (23:23)
[2022-12-22] MEDS: Piperacillin/Tazobactam 3.375 GM in Sodium Chloride 0.9% 100 ML IV SCH ×4 (03:12→21:08)
[2022-12-22] MEDS: Levothyroxine 75 MCG Tab GTUBE SCH (05:48)
[2022-12-22 06:12] LABS: EOSINOPHILS PERCENT AUTO 0.1 % (1.0-3.0); HEMATOCRIT 26.7 % (40.0-54.0); HEMOGLOBIN 8.9 g/dL (14.0-18.0); LYMPHOCYTES PERCENT AUTO 19.1 % (20.5-50.1); MEAN CORPUSCULAR HEMOGLOBIN 29.4 pg (27.0-34.0); MEAN CORPUSCULAR HGB CONC 33.3 g/dL (33.0-35.0); MEAN CORPUSCULAR VOLUME 88.1 fL (80-100); MONOCYTES PERCENT AUTO 10.9 % (2-8); NEUTROPHILS PERCENT AUTO 69.9 % (42.2-75.2); PLATELET COUNT,PLT 122 10^3/uL (150-450); RED BLOOD CELL COUNT 3.03 10^6/uL (4.6-6.2); WHITE BLOOD CELL COUNT,WBC 9.3 10^3/uL (5.0-10.0)
[2022-12-22 06:34] LABS: ALBUMIN 1.9 g/dL (3.4-5.0); ANION GAP 13.6 mEq/L (7-13); BILIRUBIN TOTAL 0.3 mg/dL (0.2-1.0); BUN/CREATININE RATIO 16.1 (No establ ref range); CALCIUM 8.8 mg/dL (8.5-10.1); CREATININE 0.31 mg/dL (0.70-1.30); EST CRCL DRUG DOSING (CG) 317.28 mL/min; MAGNESIUM 1.8 mg/dL (1.8-2.4); POTASSIUM,K 3.6 mmol/L (3.5-5.1); PROTEIN TOTAL,TP 6.1 g/dL (6.4-8.2)
[2022-12-22 06:42] LABS: A/G RATIO 0.45; C-REACTIVE PROTEIN 33.7 mg/dL (0.0-0.9)
[2022-12-22] MEDS: Albuterol/Ipratropium 3.0-0.5 MG/3 ML Neb Soln NEB SCH ×2 (07:24→17:08)
[2022-12-22] MEDS: Pantoprazole 40 MG Vial IVPUSH SCH ×2 (07:25→21:08)
[2022-12-22] MEDS: levETIRAcetam 500 MG Tab GTUBE SCH ×2 (08:42→21:11)
[2022-12-22] MEDS: Cholecalciferol (Vitamin D3) 25 MCG Tab GTUBE SCH (08:45)
[2022-12-22] MEDS: guaiFENesin 600 MG Tab.ER PO SCH ×2 (08:46→21:11)
[2022-12-22] MEDS: OXcarbazepine 300 MG Tab GTUBE SCH ×2 (08:47→21:11)
[2022-12-22] MEDS: Saccharomyces Boulardii (Probiotic) 250 MG Cap PO SCH ×2 (08:47→21:11)
[2022-12-22] MEDS: Valproic Acid 250 MG/5 ML Soln 5 ML UD Cup GTUBE SCH ×3 (08:48→21:11)
[2022-12-22] MEDS ORDERED: Non-Formulary Medication 1 Each (Clobetasol [Clobetasol Propionate 0.05% Cream] 15 GM Tube TOP SCH (09:00)
[2022-12-22] MEDS ORDERED: CLINDAMYCIN PHOSPHATE TOP SCH (09:00)
[2022-12-22] MEDS ORDERED: CETIRIZINE 10 MG GTUBE SCH (09:00)
[2022-12-22] MEDS ORDERED: CARNITINE 500 MG PEGTUBE SCH (09:00)
[2022-12-22] MEDS: LACOSAMIDE 50 MG GTUBE SCH ×4 (09:03→21:13)
[2022-12-22] MEDS: CARNITINE 500 MG GTUBE SCH ×3 (09:06→21:13)
[2022-12-22] MEDS: MENTHOL TOP SCH ×2 (09:57→10:15)
[2022-12-22] MEDS: ZINC OXIDE TOP SCH ×2 (09:57→10:15)
[2022-12-22] MEDS: CETIRIZINE 10 MG GTUBE SCH (12:08)
[2022-12-22] MEDS: Acetaminophen Soln 160 MG/5 ML UD Cup GTUBE PRN (12:44)
[2022-12-22] MEDS: Sodium Chloride 0.9% 1,000 ML IV SCH (14:14)
[2022-12-22] MEDS: VANCOmycin 1.5 GM/300 ML 1.5 GM in Premix Bag 1 BAG IV SCH (17:07)
[2022-12-22] MEDS: Enoxaparin 40 MG/0.4 ML Syringe SUBCUT SCH (21:11)
[2022-12-23] MEDS: Piperacillin/Tazobactam 3.375 GM in Sodium Chloride 0.9% 100 ML IV SCH ×4 (04:27→21:00)
[2022-12-23] MEDS: VANCOmycin 1.5 GM/300 ML 1.5 GM in Premix Bag 1 BAG IV SCH ×2 (06:01→18:09)
[2022-12-23] MEDS: Albuterol/Ipratropium 3.0-0.5 MG/3 ML Neb Soln NEB SCH ×2 (06:05→18:08)
[2022-12-23] MEDS: Levothyroxine 75 MCG Tab GTUBE SCH (06:07)
[2022-12-23 06:15] LABS: BASOPHILS PERCENT AUTO 0.1 % (0.0-1.0); EOSINOPHILS PERCENT AUTO 0.3 % (1.0-3.0); HEMATOCRIT 28.2 % (40.0-54.0); HEMOGLOBIN 9.4 g/dL (14.0-18.0); LYMPHOCYTES PERCENT AUTO 22.9 % (20.5-50.1); MEAN CORPUSCULAR HEMOGLOBIN 29.7 pg (27.0-34.0); MEAN CORPUSCULAR HGB CONC 33.3 g/dL (33.0-35.0); MONOCYTES PERCENT AUTO 17.7 % (2-8); PLATELET COUNT,PLT 145 10^3/uL (150-450); RED BLOOD CELL COUNT 3.17 10^6/uL (4.6-6.2); WHITE BLOOD CELL COUNT,WBC 7.5 10^3/uL (5.0-10.0)
[2022-12-23 06:28] LABS: ALBUMIN 1.9 g/dL (3.4-5.0); ANION GAP 12.9 mEq/L (7-13); BILIRUBIN TOTAL 0.2 mg/dL (0.2-1.0); BUN/CREATININE RATIO 15.4 (No establ ref range); CALCIUM 8.9 mg/dL (8.5-10.1); CREATININE 0.39 mg/dL (0.70-1.30); EST CRCL DRUG DOSING (CG) 252.2 mL/min; MAGNESIUM 1.8 mg/dL (1.8-2.4); POTASSIUM,K 2.9 mmol/L (3.5-5.1); PROTEIN TOTAL,TP 6.4 g/dL (6.4-8.2)
[2022-12-23 06:36] LABS: A/G RATIO 0.42
[2022-12-23 06:49] LABS: C-REACTIVE PROTEIN 23.5 mg/dL (0.0-0.9)
[2022-12-23] MEDS: Pantoprazole 40 MG Vial IVPUSH SCH ×2 (07:59→20:45)
[2022-12-23] MEDS: Saccharomyces Boulardii (Probiotic) 250 MG Cap PO SCH ×2 (08:05→20:46)
[2022-12-23] MEDS: guaiFENesin 600 MG Tab.ER PO SCH ×2 (08:05→20:48)
[2022-12-23] MEDS: OXcarbazepine 300 MG Tab GTUBE SCH ×2 (08:05→20:51)
[2022-12-23] MEDS: CETIRIZINE 10 MG GTUBE SCH (08:05)
[2022-12-23] MEDS: Cholecalciferol (Vitamin D3) 25 MCG Tab GTUBE SCH (08:05)
[2022-12-23] MEDS: levETIRAcetam 500 MG Tab GTUBE SCH ×2 (08:05→20:47)
[2022-12-23] MEDS: Potassium Chloride 10% 20 MEQ/15 ML Soln 15 ML UD Cup PO SCH ×2 (08:07→18:08)
[2022-12-23] MEDS: CARNITINE 500 MG GTUBE SCH ×3 (08:09→20:50)
[2022-12-23] MEDS: LACOSAMIDE 50 MG GTUBE SCH ×2 (08:10→20:49)
[2022-12-23] MEDS: Valproic Acid 250 MG/5 ML Soln 5 ML UD Cup GTUBE SCH ×3 (08:17→20:47)
[2022-12-23] MEDS ORDERED: Furosemide 20 MG/2 ML VIAL IVPUSH ONE (18:00)
[2022-12-23] MEDS: Enoxaparin 40 MG/0.4 ML Syringe SUBCUT SCH (20:51)
[2022-12-24] MEDS: Piperacillin/Tazobactam 3.375 GM in Sodium Chloride 0.9% 100 ML IV SCH ×2 (03:27→10:22)
[2022-12-24] MEDS: VANCOmycin 1.5 GM/300 ML 1.5 GM in Premix Bag 1 BAG IV SCH (05:00)
[2022-12-24] MEDS: Levothyroxine 75 MCG Tab GTUBE SCH (05:04)
[2022-12-24] MEDS: Albuterol/Ipratropium 3.0-0.5 MG/3 ML Neb Soln NEB SCH (06:00)
[2022-12-24 06:14] LABS: HEMATOCRIT 27.8 % (40.0-54.0); MEAN CORPUSCULAR HEMOGLOBIN 29.1 pg (27.0-34.0); MEAN CORPUSCULAR HGB CONC 32.4 g/dL (33.0-35.0); PLATELET COUNT,PLT 145 10^3/uL (150-450); RED BLOOD CELL COUNT 3.09 10^6/uL (4.6-6.2); WHITE BLOOD CELL COUNT,WBC 5.7 10^3/uL (5.0-10.0)
[2022-12-24 06:17] LABS: EOSINOPHILS PERCENT AUTO 0.7 % (1.0-3.0); MONOCYTES PERCENT AUTO 21.6 % (2-8); NEUTROPHILS PERCENT AUTO 34.7 % (42.2-75.2)
[2022-12-24 06:31] LABS: BAND PERCENT MAN 12 %; LYMPHOCYTES PERCENT MAN 50 % (20-50); MONOCYTES PERCENT MAN 10 % (2-8); SEG NEUTROPHILS PERCENT MAN 28 % (42-75)
[2022-12-24 06:33] LABS: ANION GAP 13.6 mEq/L (7-13); BILIRUBIN TOTAL 0.2 mg/dL (0.2-1.0); BUN/CREATININE RATIO 18.8 (No establ ref range); CALCIUM 8.9 mg/dL (8.5-10.1); CREATININE 0.48 mg/dL (0.70-1.30); EST CRCL DRUG DOSING (CG) 204.91 mL/min; MAGNESIUM 1.9 mg/dL (1.8-2.4); POTASSIUM,K 3.6 mmol/L (3.5-5.1); PROTEIN TOTAL,TP 6.5 g/dL (6.4-8.2)
[2022-12-24 06:38] LABS: A/G RATIO 0.44; C-REACTIVE PROTEIN 13.2 mg/dL (0.0-0.9)
[2022-12-24] MEDS: Pantoprazole 40 MG Vial IVPUSH SCH (07:27)
[2022-12-24 09:22] VITALS: BP 101/56; PULSE 54
[2022-12-24] MEDS ORDERED: VANCOmycin 1.5 GM/300 ML 1.5 GM in Premix Bag 1 BAG IV SCH (10:00)
[2022-12-24] MEDS: Cholecalciferol (Vitamin D3) 25 MCG Tab GTUBE SCH (10:21)
[2022-12-24] MEDS: CETIRIZINE 10 MG GTUBE SCH (10:21)
[2022-12-24] MEDS: levETIRAcetam 500 MG Tab GTUBE SCH (10:22)
[2022-12-24] MEDS: Saccharomyces Boulardii (Probiotic) 250 MG Cap PO SCH (10:22)
[2022-12-24] MEDS: guaiFENesin 600 MG Tab.ER PO SCH (10:23)
[2022-12-24] MEDS: OXcarbazepine 300 MG Tab GTUBE SCH (10:23)
[2022-12-24] MEDS: Valproic Acid 250 MG/5 ML Soln 5 ML UD Cup GTUBE SCH ×2 (10:24→12:47)
[2022-12-24] MEDS: CARNITINE 500 MG GTUBE SCH (10:25)
[2022-12-24] MEDS: LACOSAMIDE 50 MG GTUBE SCH (10:28)
== END 2022-12-24 11:25 | disposition home or self-care (01) | DRG 871 ==
LOC: DL.ED 12:00 → DL.MS 14:30 → UNDOADMIN 14:49
PROVIDERS: ADMIT Internal Medicine; ATTEND Internal Medicine
DX: A41.9 Sepsis, unspecified organism (principal); J69.0 Pneumonitis due to inhalation of food and vomit; J18.9 Pneumonia, unspecified organism; J96.00 Acute respiratory failure, unspecified whether with hypoxia or hypercapnia; G80.9 Cerebral palsy, unspecified; E87.1 Hypo-osmolality and hyponatremia; G82.50 Quadriplegia, unspecified; J90 Pleural effusion, not elsewhere classified; R62.50 Unspecified lack of expected normal physiological development in childhood; G40.909 Epilepsy, unspecified, not intractable, without status epilepticus; H25.013 Cortical age-related cataract, bilateral; E03.9 Hypothyroidism, unspecified; R13.10 Dysphagia, unspecified; I95.9 Hypotension, unspecified; K59.09 Other constipation; D69.6 Thrombocytopenia, unspecified; E88.09 Other disorders of plasma-protein metabolism, not elsewhere classified; E87.8 Other disorders of electrolyte and fluid balance, not elsewhere classified; R73.9 Hyperglycemia, unspecified; H47.619 Cortical blindness, unspecified side of brain; Z98.890 Other specified postprocedural states; Z93.1 Gastrostomy status; Z79.899 Other long term (current) drug therapy
CPT/HCPCS: 36415; 71045; 80053; 80164; 80177; 80202; 83605; 83735; 84145; 85025; 86140; 87040; 96365; 96375; 99223; 99232; 99238; 99284; 99285-25; A9270-GY; C9113; J0456; J0696; J1650; J1940; J2543; J3370; J3490; J7030; J7050; J7620-GY; U0002

== ENCOUNTER 2023-07-03 21:55 | Inpatient (IN) | payer MEDICAID ==
[2023-07-03] MEDS ORDERED: Sodium Chloride 0.9% 10 ML Syringe FLUSH PRN (23:05)
[2023-07-03] MEDS ORDERED: Ampicillin/Sulbactam Na 3 GM in Sodium Chloride 0.9% 100 ML IV ONE (23:08)
[2023-07-03] MEDS ORDERED: Sodium Chloride 0.9% 1,000 ML IV SCH (23:15)
[2023-07-03 23:23] LABS: BASOPHILS PERCENT AUTO 0.1 % (0.0-1.0); HEMATOCRIT 45.4 % (40.0-54.0); HEMOGLOBIN 15.5 g/dL (14.0-18.0); LYMPHOCYTES PERCENT AUTO 8.5 % (20.5-50.1); MEAN CORPUSCULAR HEMOGLOBIN 29.6 pg (27.0-34.0); MEAN CORPUSCULAR HGB CONC 34.1 g/dL (33.0-35.0); MEAN CORPUSCULAR VOLUME 86.8 fL (80-100); NEUTROPHILS PERCENT AUTO 84.4 % (42.2-75.2); PLATELET COUNT,PLT 192 10^3/uL (150-450); RED BLOOD CELL COUNT 5.23 10^6/uL (4.6-6.2); WHITE BLOOD CELL COUNT,WBC 14.9 10^3/uL (5.0-10.0)
[2023-07-03 23:44] LABS: ALANINE AMINOTRANSFERASE,ALT 27 U/L (16-63); ALKALINE PHOSPHATASE 91 U/L (46-116); ANION GAP 13.6 mEq/L (7-13); ASPARTATE AMNIOTRANSFERASE,AST 23 U/L (15-37); BILIRUBIN TOTAL 0.2 mg/dL (0.2-1.0); BLOOD UREA NITROGEN,BUN 22 mg/dL (7-18); BUN/CREATININE RATIO 35.5 (No establ ref range); CALCIUM 9.4 mg/dL (8.5-10.1); CARBON DIOXIDE,CO2 28 mmol/L (21-32); CHLORIDE,CL 97 mmol/L (98-107); CREATININE 0.62 mg/dL (0.70-1.30); EST CRCL DRUG DOSING (CG) 140.21 mL/min; GLUCOSE RANDOM 152 mg/dL (70-99); POTASSIUM,K 4.6 mmol/L (3.5-5.1); PROTEIN TOTAL,TP 8.1 g/dL (6.4-8.2); SODIUM,NA 134 mmol/L (136-145)
[2023-07-03 23:46] LABS: A/G RATIO 0.59; ESTIMATED GFR 132 mL/min (>=60); LIPASE > 250 U/L (16-77)
[2023-07-04] MEDS ORDERED: Ketorolac 30 MG/ML SDV IVPUSH PRN (01:02)
[2023-07-04] MEDS ORDERED: Naloxone 2 MG/2 ML Syringe IVPUSH PRN (01:02)
[2023-07-04] MEDS ORDERED: Albuterol/Ipratropium 3.0-0.5 MG/3 ML Neb Soln NEB PRN (01:02)
[2023-07-04] MEDS ORDERED: hydrALAZINE 20 MG/ML SDV IVPUSH PRN (01:43)
[2023-07-04] MEDS ORDERED: Flumazenil 0.1 MG/ML 5 ML MDV IVPUSH PRN (01:43)
[2023-07-04] MEDS ORDERED: MVI, Adult with Vitamin K 10 ML, Folic Acid 1 MG, Thiamine 100 MG in Lactated Ringers 1... IV ONE ×4 (01:44)
[2023-07-04] MEDS: Dextrose 5%-0.9% NaCl 1,000 ML IV SCH (02:15)
[2023-07-04] MEDS ORDERED: Metoclopramide 10 MG/2 ML SDV IVPUSH STA (03:05)
[2023-07-04] MEDS: HYDROmorphone 0.5 MG/0.5 ML Syringe IVPUSH PRN ×4 (03:30→20:10)
[2023-07-04] MEDS: Metoprolol Tartrate 5 MG/5 ML SDV IVPUSH PRN ×3 (04:20→14:32)
[2023-07-04] MEDS: Ampicillin/Sulbactam Na 1.5 GM in Sodium Chloride 0.9% 100 ML IV SCH ×3 (05:10→17:34)
[2023-07-04 06:39] LABS: HEMATOCRIT 46.1 % (40.0-54.0); HEMOGLOBIN 15.6 g/dL (14.0-18.0); LYMPHOCYTES PERCENT AUTO 7.2 % (20.5-50.1); MEAN CORPUSCULAR HEMOGLOBIN 29.5 pg (27.0-34.0); MEAN CORPUSCULAR HGB CONC 33.8 g/dL (33.0-35.0); MEAN CORPUSCULAR VOLUME 87.3 fL (80-100); MONOCYTES PERCENT AUTO 10.6 % (2-8); NEUTROPHILS PERCENT AUTO 82.2 % (42.2-75.2); PLATELET COUNT,PLT 172 10^3/uL (150-450); RED BLOOD CELL COUNT 5.28 10^6/uL (4.6-6.2); WHITE BLOOD CELL COUNT,WBC 22.5 10^3/uL (5.0-10.0)
[2023-07-04 07:07] LABS: ALANINE AMINOTRANSFERASE,ALT 24 U/L (16-63); ALBUMIN 2.9 g/dL (3.4-5.0); ALKALINE PHOSPHATASE 92 U/L (46-116); ASPARTATE AMNIOTRANSFERASE,AST 24 U/L (15-37); BILIRUBIN TOTAL 0.2 mg/dL (0.2-1.0); BLOOD UREA NITROGEN,BUN 22 mg/dL (7-18); BUN/CREATININE RATIO 29.7 (No establ ref range); C-REACTIVE PROTEIN 6.12 ng/dL (<=0.50); CALCIUM 8.9 mg/dL (8.5-10.1); CARBON DIOXIDE,CO2 29 mmol/L (21-32); CHLORIDE,CL 100 mmol/L (98-107); CREATININE 0.74 mg/dL (0.70-1.30); EST CRCL DRUG DOSING (CG) 117.47 mL/min; GLUCOSE RANDOM 151 mg/dL (70-99); MAGNESIUM 1.6 mg/dL (1.8-2.4); PROTEIN TOTAL,TP 7.9 g/dL (6.4-8.2); SODIUM,NA 135 mmol/L (136-145)
[2023-07-04 07:09] LABS: A/G RATIO 0.58; ESTIMATED GFR 125 mL/min (>=60)
[2023-07-04 07:10] LABS: LIPASE > 250 U/L (16-77)
[2023-07-04] MEDS: Ondansetron 4 MG/2 ML SDV IVPUSH PRN (08:07)
[2023-07-04] MEDS: Acetaminophen 325 MG Tab GTUBE PRN ×2 (08:15→21:57)
[2023-07-04] MEDS: Saccharomyces Boulardii (Probiotic) 250 MG Cap GTUBE SCH ×2 (08:15→21:57)
[2023-07-04] MEDS ORDERED: Magnesium Sulfate/Water 2 GM in Premix Bag 1 BAG IV ONE (08:53)
[2023-07-04] MEDS ORDERED: Lactated Ringers 1,000 ML IV ONE (10:26)
[2023-07-05] MEDS: HYDROmorphone 0.5 MG/0.5 ML Syringe IVPUSH PRN ×4 (00:51→17:30)
[2023-07-05] MEDS: Ampicillin/Sulbactam Na 1.5 GM in Sodium Chloride 0.9% 100 ML IV SCH ×5 (00:52→23:15)
[2023-07-05] MEDS: LORazepam 2 MG/ML SDV IVPUSH PRN ×2 (01:21→03:40)
[2023-07-05] MEDS ORDERED: Acetaminophen Soln 160 MG/5 ML UD Cup GTUBE PRN (01:31)
[2023-07-05] MEDS ORDERED: Sodium Chloride 0.9% 500 ML IV SCH (01:45)
[2023-07-05] MEDS: Ondansetron 4 MG/2 ML SDV IVPUSH PRN (02:21)
[2023-07-05] MEDS: Acetaminophen 325 MG Tab GTUBE PRN (02:23)
[2023-07-05] MEDS: Dextrose 5%-0.9% NaCl 1,000 ML IV SCH (02:23)
[2023-07-05] MEDS: Midodrine 5 MG Tab GTUBE SCH ×4 (02:31→22:56)
[2023-07-05] MEDS: Metoprolol Tartrate 5 MG/5 ML SDV IVPUSH PRN (02:50)
[2023-07-05] MEDS ORDERED: levETIRAcetam in NaCl (iso-os) 2,000 MG in Premix Bag 1 BAG IV STA ×2 (03:45)
[2023-07-05] MEDS ORDERED: Bisacodyl 10 MG Supp RECTAL PRN (06:22)
[2023-07-05] MEDS ORDERED: Betamethasone Dipropionate 0.05% Crm 15 GM Tube TOP PRN (06:22)
[2023-07-05] MEDS ORDERED: Acetaminophen 325 MG Tab GTUBE PRN (06:22)
[2023-07-05] MEDS ORDERED: Diazepam 5 MG Tab GTUBE PRN (06:22)
[2023-07-05] MEDS ORDERED: CLINDAMYCIN PHOSPHATE 1% TOP PRN (06:22)
[2023-07-05 06:24] LABS: HEMATOCRIT 31.7 % (40.0-54.0); HEMOGLOBIN 10.4 g/dL (14.0-18.0); LYMPHOCYTES PERCENT AUTO 11.8 % (20.5-50.1); MEAN CORPUSCULAR HEMOGLOBIN 29.6 pg (27.0-34.0); MEAN CORPUSCULAR HGB CONC 32.8 g/dL (33.0-35.0); MEAN CORPUSCULAR VOLUME 90.3 fL (80-100); MONOCYTES PERCENT AUTO 16.5 % (2-8); NEUTROPHILS PERCENT AUTO 71.7 % (42.2-75.2); PLATELET COUNT,PLT 130 10^3/uL (150-450); RED BLOOD CELL COUNT 3.51 10^6/uL (4.6-6.2); WHITE BLOOD CELL COUNT,WBC 20.7 10^3/uL (5.0-10.0)
[2023-07-05 06:48] LABS: ALANINE AMINOTRANSFERASE,ALT 18 U/L (16-63); ALBUMIN 2.1 g/dL (3.4-5.0); ALKALINE PHOSPHATASE 60 U/L (46-116); ANION GAP 6.6 mEq/L (7-13); ASPARTATE AMNIOTRANSFERASE,AST 23 U/L (15-37); BILIRUBIN TOTAL 0.5 mg/dL (0.2-1.0); BLOOD UREA NITROGEN,BUN 16 mg/dL (7-18); BUN/CREATININE RATIO 34.8 (No establ ref range); CALCIUM 7.9 mg/dL (8.5-10.1); CARBON DIOXIDE,CO2 29 mmol/L (21-32); CHLORIDE,CL 106 mmol/L (98-107); CREATININE 0.46 mg/dL (0.70-1.30); EST CRCL DRUG DOSING (CG) 188.98 mL/min; GLUCOSE RANDOM 101 mg/dL (70-99); MAGNESIUM 1.7 mg/dL (1.8-2.4); POTASSIUM,K 3.6 mmol/L (3.5-5.1); PROTEIN TOTAL,TP 5.9 g/dL (6.4-8.2); SODIUM,NA 138 mmol/L (136-145)
[2023-07-05] MEDS ORDERED: Magnesium Hydroxide 400 MG/5 ML Susp 30 ML Cup GTUBE PRN (06:54)
[2023-07-05 07:05] LABS: A/G RATIO 0.55; ESTIMATED GFR 144 mL/min (>=60); LIPASE > 250 U/L (16-77)
[2023-07-05] MEDS ORDERED: Magnesium Sulfate/Water 2 GM in Premix Bag 1 BAG IV ONE (07:34)
[2023-07-05] MEDS: Levothyroxine 75 MCG Tab GTUBE SCH (07:49)
[2023-07-05] MEDS ORDERED: levETIRAcetam 500 MG Tab GTUBE SCH (09:00)
[2023-07-05] MEDS ORDERED: Valproic Acid 250 MG/5 ML Soln 5 ML UD Cup GTUBE SCH ×2 (09:00→12:00)
[2023-07-05] MEDS ORDERED: LACOSAMIDE 50 MG GTUBE SCH (09:00)
[2023-07-05] MEDS: levETIRAcetam in NaCl (iso-os) 2,000 MG in Premix Bag 1 BAG IV SCH ×4 (09:23→21:55)
[2023-07-05] MEDS: Cholecalciferol (Vitamin D3) 25 MCG Tab GTUBE SCH (09:29)
[2023-07-05] MEDS: OXcarbazepine 300 MG Tab GTUBE SCH ×2 (09:29→22:58)
[2023-07-05] MEDS: Saccharomyces Boulardii (Probiotic) 250 MG Cap GTUBE SCH ×2 (09:29→23:00)
[2023-07-05] MEDS: Valproic Acid 250 MG/5 ML Soln 5 ML UD Cup GTUBE SCH ×3 (09:29→22:59)
[2023-07-05] MEDS: LEVOCARNITINE 500 MG GTUBE SCH ×3 (11:55→23:01)
[2023-07-05] MEDS ORDERED: Bisacodyl 10 MG Supp RECTAL ONE (14:45)
[2023-07-05] MEDS ORDERED: Lactulose Soln 10 GM/15 ML 30 ML UD Cup PO ONE ×2 (14:46→15:27)
[2023-07-05] MEDS: Metoclopramide 10 MG/2 ML SDV IVPUSH SCH (22:57)
[2023-07-05] MEDS: Loratadine 10 MG Tab GTUBE SCH (22:58)
[2023-07-05] MEDS: TRETINOIN 0.025% TOP SCH (23:02)
[2023-07-06] MEDS: Midodrine 5 MG Tab GTUBE SCH ×2 (02:39→14:45)
[2023-07-06] MEDS: Ampicillin/Sulbactam Na 1.5 GM in Sodium Chloride 0.9% 100 ML IV SCH ×4 (05:21→23:41)
[2023-07-06] MEDS: Levothyroxine 75 MCG Tab GTUBE SCH (05:24)
[2023-07-06] MEDS: Metoclopramide 10 MG/2 ML SDV IVPUSH SCH ×3 (06:03→23:07)
[2023-07-06 06:49] LABS: HEMATOCRIT 26.8 % (40.0-54.0); HEMOGLOBIN 8.6 g/dL (14.0-18.0); LYMPHOCYTES PERCENT AUTO 13.9 % (20.5-50.1); MEAN CORPUSCULAR HEMOGLOBIN 29.6 pg (27.0-34.0); MEAN CORPUSCULAR HGB CONC 32.1 g/dL (33.0-35.0); MEAN CORPUSCULAR VOLUME 92.1 fL (80-100); MONOCYTES PERCENT AUTO 13.5 % (2-8); NEUTROPHILS PERCENT AUTO 72.6 % (42.2-75.2); PLATELET COUNT,PLT 125 10^3/uL (150-450); RED BLOOD CELL COUNT 2.91 10^6/uL (4.6-6.2); WHITE BLOOD CELL COUNT,WBC 13.2 10^3/uL (5.0-10.0)
[2023-07-06 07:00] LABS: ALANINE AMINOTRANSFERASE,ALT 17 U/L (16-63); ALBUMIN 1.9 g/dL (3.4-5.0); ALKALINE PHOSPHATASE 59 U/L (46-116); ANION GAP 6.4 mEq/L (7-13); ASPARTATE AMNIOTRANSFERASE,AST 18 U/L (15-37); BILIRUBIN TOTAL 0.4 mg/dL (0.2-1.0); BLOOD UREA NITROGEN,BUN 6 mg/dL (7-18); BUN/CREATININE RATIO 18.8 (No establ ref range); CALCIUM 8.1 mg/dL (8.5-10.1); CARBON DIOXIDE,CO2 31 mmol/L (21-32); CHLORIDE,CL 103 mmol/L (98-107); CREATININE 0.32 mg/dL (0.70-1.30); EST CRCL DRUG DOSING (CG) 271.66 mL/min; GLUCOSE RANDOM 101 mg/dL (70-99); LIPASE 95 U/L (16-77); MAGNESIUM 1.7 mg/dL (1.8-2.4); POTASSIUM,K 3.4 mmol/L (3.5-5.1); PROTEIN TOTAL,TP 5.6 g/dL (6.4-8.2); SODIUM,NA 137 mmol/L (136-145)
[2023-07-06 07:15] LABS: A/G RATIO 0.51; C-REACTIVE PROTEIN > 25.00 ng/dL (<=0.50); ESTIMATED GFR 161 mL/min (>=60)
[2023-07-06] MEDS: levETIRAcetam in NaCl (iso-os) 2,000 MG in Premix Bag 1 BAG IV SCH ×4 (11:06→23:05)
[2023-07-06] MEDS: Valproic Acid 250 MG/5 ML Soln 5 ML UD Cup GTUBE SCH ×3 (11:13→23:12)
[2023-07-06] MEDS: ZINC OXIDE TOP SCH ×3 (11:16→23:28)
[2023-07-06] MEDS: OXcarbazepine 300 MG Tab GTUBE SCH ×2 (11:16→23:13)
[2023-07-06] MEDS: MENTHOL TOP SCH ×3 (11:16→23:28)
[2023-07-06] MEDS: LEVOCARNITINE 500 MG GTUBE SCH ×3 (11:17→23:20)
[2023-07-06] MEDS: Cholecalciferol (Vitamin D3) 25 MCG Tab GTUBE SCH (11:18)
[2023-07-06] MEDS ORDERED: Magnesium Sulfate/Water 2 GM in Premix Bag 1 BAG IV ONE (11:48)
[2023-07-06] MEDS: Potassium Chloride 10% 20 MEQ/15 ML Soln 15 ML UD Cup GTUBE SCH ×2 (13:33→17:06)
[2023-07-06] MEDS: Saccharomyces Boulardii (Probiotic) 250 MG Cap GTUBE SCH ×2 (18:19→23:23)
[2023-07-06] MEDS ORDERED: Polyethylene Glycol 3350 Powder 17 GM Packet PO ONE (18:58)
[2023-07-06] MEDS: Loratadine 10 MG Tab GTUBE SCH (23:13)
[2023-07-06] MEDS: TRETINOIN 0.025% TOP SCH (23:27)
[2023-07-07] MEDS: Ampicillin/Sulbactam Na 1.5 GM in Sodium Chloride 0.9% 100 ML IV SCH ×3 (05:12→18:13)
[2023-07-07] MEDS: Levothyroxine 75 MCG Tab GTUBE SCH (05:17)
[2023-07-07 06:30] LABS: BASOPHILS PERCENT AUTO 0.1 % (0.0-1.0); EOSINOPHILS PERCENT AUTO 0.1 % (1.0-3.0); HEMATOCRIT 24.4 % (40.0-54.0); HEMOGLOBIN 7.8 g/dL (14.0-18.0); LYMPHOCYTES PERCENT AUTO 19.7 % (20.5-50.1); MEAN CORPUSCULAR HEMOGLOBIN 29.4 pg (27.0-34.0); MEAN CORPUSCULAR VOLUME 92.1 fL (80-100); MONOCYTES PERCENT AUTO 10.2 % (2-8); NEUTROPHILS PERCENT AUTO 69.9 % (42.2-75.2); PLATELET COUNT,PLT 148 10^3/uL (150-450); RED BLOOD CELL COUNT 2.65 10^6/uL (4.6-6.2); WHITE BLOOD CELL COUNT,WBC 10.9 10^3/uL (5.0-10.0)
[2023-07-07 06:44] LABS: ALBUMIN 1.9 g/dL (3.4-5.0); ANION GAP 10.7 mEq/L (7-13); BILIRUBIN TOTAL 0.4 mg/dL (0.2-1.0); C-REACTIVE PROTEIN 21.11 ng/dL (<=0.50); CALCIUM 8.4 mg/dL (8.5-10.1); CREATININE 0.25 mg/dL (0.70-1.30); MAGNESIUM 1.7 mg/dL (1.8-2.4); POTASSIUM,K 3.7 mmol/L (3.5-5.1); PROTEIN TOTAL,TP 5.8 g/dL (6.4-8.2)
[2023-07-07 06:50] LABS: A/G RATIO 0.49
[2023-07-07] MEDS ORDERED: Magnesium Sulfate/Water 2 GM in Premix Bag 1 BAG IV ONE ×3 (07:23→17:00)
[2023-07-07] MEDS: Lactulose Soln 10 GM/15 ML 30 ML UD Cup PO SCH ×3 (08:02→13:58)
[2023-07-07] MEDS: Metoclopramide 10 MG/2 ML SDV IVPUSH SCH ×3 (09:47→21:02)
[2023-07-07] MEDS: Valproic Acid 250 MG/5 ML Soln 5 ML UD Cup GTUBE SCH ×3 (11:40→20:56)
[2023-07-07] MEDS: Cholecalciferol (Vitamin D3) 25 MCG Tab GTUBE SCH (11:52)
[2023-07-07] MEDS: MENTHOL TOP SCH ×2 (11:56→21:09)
[2023-07-07] MEDS: ZINC OXIDE TOP SCH ×2 (11:56→21:09)
[2023-07-07] MEDS: LEVOCARNITINE 500 MG GTUBE SCH ×3 (11:56→21:08)
[2023-07-07] MEDS: OXcarbazepine 300 MG Tab GTUBE SCH ×2 (12:07→21:00)
[2023-07-07] MEDS: Saccharomyces Boulardii (Probiotic) 250 MG Cap GTUBE SCH ×3 (12:07→20:58)
[2023-07-07] MEDS: levETIRAcetam in NaCl (iso-os) 2,000 MG in Premix Bag 1 BAG IV SCH ×4 (13:23→20:51)
[2023-07-07] MEDS: Loratadine 10 MG Tab GTUBE SCH (21:00)
[2023-07-07] MEDS: TRETINOIN 0.025% TOP SCH (21:09)
[2023-07-08] MEDS: Ampicillin/Sulbactam Na 1.5 GM in Sodium Chloride 0.9% 100 ML IV SCH ×2 (00:02→06:22)
[2023-07-08] MEDS ORDERED: Magnesium Sulfate/Water 2 GM in Premix Bag 1 BAG IV ONE (04:00)
[2023-07-08 06:14] LABS: EOSINOPHILS PERCENT AUTO 0.5 % (1.0-3.0); HEMATOCRIT 25.8 % (40.0-54.0); HEMOGLOBIN 8.2 g/dL (14.0-18.0); LYMPHOCYTES PERCENT AUTO 23.5 % (20.5-50.1); MEAN CORPUSCULAR HGB CONC 31.8 g/dL (33.0-35.0); MEAN CORPUSCULAR VOLUME 91.2 fL (80-100); PLATELET COUNT,PLT 199 10^3/uL (150-450); RED BLOOD CELL COUNT 2.83 10^6/uL (4.6-6.2); WHITE BLOOD CELL COUNT,WBC 7.8 10^3/uL (5.0-10.0)
[2023-07-08] MEDS: Levothyroxine 75 MCG Tab GTUBE SCH (06:14)
[2023-07-08] MEDS: Metoclopramide 10 MG/2 ML SDV IVPUSH SCH (06:15)
[2023-07-08 06:32] LABS: A/G RATIO 0.47; ANION GAP 11.1 mEq/L (7-13); BILIRUBIN TOTAL 0.4 mg/dL (0.2-1.0); BUN/CREATININE RATIO 15.4 (No establ ref range); CALCIUM 8.2 mg/dL (8.5-10.1); CREATININE 0.26 mg/dL (0.70-1.30); EST CRCL DRUG DOSING (CG) 334.35 mL/min; MAGNESIUM 2.4 mg/dL (1.8-2.4); POTASSIUM,K 3.1 mmol/L (3.5-5.1); PROTEIN TOTAL,TP 6.3 g/dL (6.4-8.2)
[2023-07-08] MEDS ORDERED: Potassium Chloride 20 MEQ in Premix Bag 1 BAG IV ONE (07:30)
[2023-07-08] MEDS ORDERED: Potassium Chloride 10% 20 MEQ/15 ML Soln 15 ML UD Cup PO SCH (08:00)
[2023-07-08] MEDS ORDERED: Potassium Chloride 10% 20 MEQ/15 ML Soln 15 ML UD Cup GTUBE SCH (08:00)
[2023-07-08] MEDS: Valproic Acid 250 MG/5 ML Soln 5 ML UD Cup GTUBE SCH (08:53)
[2023-07-08] MEDS: Saccharomyces Boulardii (Probiotic) 250 MG Cap GTUBE SCH (08:56)
[2023-07-08] MEDS: ZINC OXIDE TOP SCH (08:57)
[2023-07-08] MEDS: LEVOCARNITINE 500 MG GTUBE SCH (08:57)
[2023-07-08] MEDS: MENTHOL TOP SCH (08:57)
[2023-07-08] MEDS: OXcarbazepine 300 MG Tab GTUBE SCH (08:58)
[2023-07-08] MEDS: Cholecalciferol (Vitamin D3) 25 MCG Tab GTUBE SCH (08:58)
[2023-07-08 09:50] VITALS: BP 125/87; PULSE 91
[2023-07-08] MEDS ORDERED: Menthol/Zinc Oxide Ointment 113 GM Tube TOP ONE (11:59)
[2023-07-08] MEDS ORDERED: Valproic Acid 250 MG/5 ML Soln 5 ML UD Cup GTUBE SCH (12:00)
== END 2023-07-08 12:00 | disposition home or self-care (01) | DRG 871 ==
LOC: DL.ED 21:55 → UNDOADMIN 07-04 00:45 → DL.MS 07-04 00:45 → UNDODISIN 07-08 12:00
PROVIDERS: ADMIT Internal Medicine; ATTEND Internal Medicine
DX: A41.9 Sepsis, unspecified organism (principal); J69.0 Pneumonitis due to inhalation of food and vomit; G80.0 Spastic quadriplegic cerebral palsy; K85.90 Acute pancreatitis without necrosis or infection, unspecified; Z86.16 Personal history of COVID-19; E87.20 Acidosis, unspecified; E87.1 Hypo-osmolality and hyponatremia; H47.619 Cortical blindness, unspecified side of brain; F79 Unspecified intellectual disabilities; G40.909 Epilepsy, unspecified, not intractable, without status epilepticus; E03.9 Hypothyroidism, unspecified; R13.10 Dysphagia, unspecified; D50.9 Iron deficiency anemia, unspecified; E87.6 Hypokalemia; E88.09 Other disorders of plasma-protein metabolism, not elsewhere classified; I95.9 Hypotension, unspecified; E87.8 Other disorders of electrolyte and fluid balance, not elsewhere classified; E83.52 Hypercalcemia; R33.9 Retention of urine, unspecified; K59.09 Other constipation; Z96.649 Presence of unspecified artificial hip joint; R73.9 Hyperglycemia, unspecified; D69.6 Thrombocytopenia, unspecified; E83.42 Hypomagnesemia; Z79.899 Other long term (current) drug therapy; Z93.1 Gastrostomy status; Z79.890 Hormone replacement therapy
CPT/HCPCS: 36415; 51702; 71045; 71250; 74018; 74176; 80053; 80202; 83605; 83690; 83735; 85025; 86140; 87040; 96365; 99223; 99232; 99233; 99238; 99285; 99285-25; A9270-GY; J0295; J0360; J1170; J1953; J2060; J2405; J2765; J3370; J3411; J3475; J3480; J3490; J7030; J7040; J7042; J7050; J7120

== ENCOUNTER 2023-07-17 16:40 | Emergency (ER) | payer MEDICAID ==
[2023-07-17 16:52] VITALS: BP 121/82; PULSE 63
== END 2023-07-17 19:35 | disposition home or self-care (01) ==
LOC: DL.ED 16:40
DX: K94.23 Gastrostomy malfunction (principal); E03.9 Hypothyroidism, unspecified; Z79.899 Other long term (current) drug therapy; Z86.16 Personal history of COVID-19; Z79.2 Long term (current) use of antibiotics
CPT/HCPCS: 51702; 71250; 74176; 99284

== ENCOUNTER → 2023-09-13 | Day surgery (SDC) | payer MEDICAID ==
[2023-09-13] MEDS: Dextrose 5%-0.45% NaCl 1,000 ML IV SCH (06:15)
[2023-09-13 09:07] VITALS: BP 104/76; PULSE 42
== END | disposition home or self-care (01) ==
LOC: DL.ENDO 05:29
PROVIDERS: ATTEND Internal Medicine Gastroenterology
DX: D50.9 Iron deficiency anemia, unspecified (principal); K21.9 Gastro-esophageal reflux disease without esophagitis; E66.09 Other obesity due to excess calories; Z68.21 Body mass index [BMI] 21.0-21.9, adult; Z79.899 Other long term (current) drug therapy; Z98.890 Other specified postprocedural states
CPT/HCPCS: 43239; 87077; J7042

== ENCOUNTER 2024-03-25 15:42 | Emergency (ER) | payer MEDICAID ==
[2024-03-25 16:01] VITALS: BP 122/81; PULSE 79
[2024-03-25 16:33] LABS: BASOPHILS PERCENT AUTO 0.2 % (0.0-1.0); EOSINOPHILS PERCENT AUTO 0.8 % (1.0-3.0); HEMATOCRIT 36.9 % (40.0-54.0); LYMPHOCYTES PERCENT AUTO 45.4 % (20.5-50.1); MEAN CORPUSCULAR HEMOGLOBIN 28.1 pg (27.0-34.0); MEAN CORPUSCULAR HGB CONC 32.5 g/dL (33.0-35.0); MEAN CORPUSCULAR VOLUME 86.4 fL (80-100); MONOCYTES PERCENT AUTO 13.7 % (2-8); NEUTROPHILS PERCENT AUTO 39.9 % (42.2-75.2); PLATELET COUNT,PLT 227 10^3/uL (150-450); RED BLOOD CELL COUNT 4.27 10^6/uL (4.6-6.2); WHITE BLOOD CELL COUNT,WBC 5.2 10^3/uL (5.0-10.0)
[2024-03-25 16:36] LABS: APPEARANCE,URINE SLIGHTLY CLOUDY (CLEAR); BILIRUBIN,URINE NEGATIVE (NEGATIVE); COLOR,URINE YELLOW (YELLOW); GLUCOSE,URINE NEGATIVE (NEGATIVE); KETONES,URINE 15 (NEGATIVE); LEUKOCYTE ESTERASE,URINE NEGATIVE (NEGATIVE); NITRITE,URINE NEGATIVE (NEGATIVE); OCCULT BLOOD,URINE TRACE-INTACT (NEGATIVE); PH,URINE 5.5 (5.0-9.0); PROTEIN,URINE NEGATIVE (NEGATIVE); UROBILINOGEN,URINE 0.2 mg/dL (0.2-1.0)
[2024-03-25 16:50] LABS: BACTERIA,URINE FEW /HPF (0-FEW/HPF); EPITHELIAL CELLS,URINE FEW /HPF (NOT SEEN); MUCUS,URINE MODERATE /LPF (NOT SEEN)
[2024-03-25 16:52] LABS: A/G RATIO 0.7; ALBUMIN 3.7 g/dL (3.4-5.0); BILIRUBIN TOTAL 0.2 mg/dL (0.2-1.0); BUN/CREATININE RATIO 19.6 (No establ ref range); CALCIUM 9.7 mg/dL (8.5-10.1); CREATININE 0.56 mg/dL (0.70-1.30); EST CRCL DRUG DOSING (CG) 180.33 mL/min; MAGNESIUM 1.6 mg/dL (1.8-2.4); PROTEIN TOTAL,TP 9.3 g/dL (6.4-8.2)
[2024-03-25] MEDS: Sodium Chloride 0.9% 500 ML IV ONE ×2 (17:14→17:46)
[2024-03-25] MEDS: Magnesium Sulfate/Water 2 GM in Premix Bag 1 BAG IV ONE (17:46)
== END 2024-03-25 21:19 | disposition home or self-care (01) ==
LOC: DL.ED 15:42
DX: G40.909 Epilepsy, unspecified, not intractable, without status epilepticus (principal); G80.9 Cerebral palsy, unspecified; E03.9 Hypothyroidism, unspecified; Z79.890 Hormone replacement therapy; Z79.899 Other long term (current) drug therapy; Z86.16 Personal history of COVID-19
CPT/HCPCS: 36415; 80053; 81001; 82947; 83735; 85025; 96365; 96366; 99284; C1758; J3475; J7040

== ENCOUNTER 2024-04-22 11:28 | Emergency (ER) | payer MEDICAID ==
[2024-04-22 11:56] LABS: BASOPHILS PERCENT AUTO 0.1 % (0.0-1.0); EOSINOPHILS PERCENT AUTO 0.2 % (1.0-3.0); HEMATOCRIT 32.9 % (40.0-54.0); LYMPHOCYTES PERCENT AUTO 25.7 % (20.5-50.1); MEAN CORPUSCULAR HEMOGLOBIN 28.4 pg (27.0-34.0); MEAN CORPUSCULAR HGB CONC 33.4 g/dL (33.0-35.0); MEAN CORPUSCULAR VOLUME 84.8 fL (80-100); MONOCYTES PERCENT AUTO 9.7 % (2-8); NEUTROPHILS PERCENT AUTO 64.3 % (42.2-75.2); PLATELET COUNT,PLT 206 10^3/uL (150-450); RED BLOOD CELL COUNT 3.88 10^6/uL (4.6-6.2); WHITE BLOOD CELL COUNT,WBC 8.5 10^3/uL (5.0-10.0)
[2024-04-22 12:17] LABS: PROTHROMBIN TIME 10.4 SEC (9.0-12.0); PTT,PARTIAL THROMBOPLSTIN TIME 28.8 SEC (22.0-34.0)
[2024-04-22 12:20] LABS: A/G RATIO 0.8; ALANINE AMINOTRANSFERASE,ALT 34 U/L (16-63); ALBUMIN 3.4 g/dL (3.4-5.0); ALKALINE PHOSPHATASE 73 U/L (46-116); ANION GAP 11.9 mEq/L (7-13); ASPARTATE AMNIOTRANSFERASE,AST 18 U/L (15-37); BILIRUBIN TOTAL 0.2 mg/dL (0.2-1.0); BLOOD UREA NITROGEN,BUN 9 mg/dL (7-18); BUN/CREATININE RATIO 19.6 (No establ ref range); CARBON DIOXIDE,CO2 28 mmol/L (21-32); CHLORIDE,CL 93 mmol/L (98-107); CREATININE 0.46 mg/dL (0.70-1.30); ESTIMATED GFR 144 mL/min (>=60); ETHANOL BLOOD MEDICAL < 3 mg/dL (0); GLUCOSE RANDOM 97 mg/dL (70-99); MAGNESIUM 1.7 mg/dL (1.8-2.4); POTASSIUM,K 3.9 mmol/L (3.5-5.1); PROTEIN TOTAL,TP 7.9 g/dL (6.4-8.2); SODIUM,NA 129 mmol/L (136-145)
[2024-04-22 12:30] LABS: LACTIC ACID 2.5 mmol/L (0.4-2.0)
[2024-04-22] MEDS: Sodium Chloride 0.9% 10 ML Syringe FLUSH PRN (12:38)
[2024-04-22] MEDS: Sodium Chloride 0.9% 1,000 ML IV ONE ×2 (12:39→15:22)
[2024-04-22] MEDS: Magnesium Sulfate/Water Premix 2 GM in Premix Bag 1 BAG IV ONE (12:55)
[2024-04-22 14:13] LABS: APPEARANCE,URINE CLEAR (CLEAR); BILIRUBIN,URINE NEGATIVE (NEGATIVE); COLOR,URINE YELLOW (YELLOW); GLUCOSE,URINE NEGATIVE (NEGATIVE); KETONES,URINE NEGATIVE (NEGATIVE); LEUKOCYTE ESTERASE,URINE NEGATIVE (NEGATIVE); NITRITE,URINE NEGATIVE (NEGATIVE); OCCULT BLOOD,URINE NEGATIVE (NEGATIVE); PH,URINE 7.5 (5.0-9.0); PROTEIN,URINE NEGATIVE (NEGATIVE); UROBILINOGEN,URINE 0.2 mg/dL (0.2-1.0)
[2024-04-22 14:16] LABS: AMPHETAMINES,URINE NEGATIVE (NEGATIVE); BARBITURATES,URINE NEGATIVE (NEGATIVE); BENZODIAZEPINE,URINE POSITIVE (NEGATIVE); MDMA (ECSTASY), URINE NEGATIVE (NEGATIVE); METHADONE,URINE NEGATIVE (NEGATIVE); METHAMPHETAMINES,URINE NEGATIVE (NEGATIVE); OPIATES,URINE NEGATIVE (NEGATIVE); OXYCODONE,URINE NEGATIVE (NEGATIVE); PHENCYCLIDINE,URINE NEGATIVE (NEGATIVE); TCA,URINE NEGATIVE (NEGATIVE)
[2024-04-22 14:56] VITALS: BP 97/57; PULSE 51
[2024-04-22 15:07] LABS: BLOOD UREA NITROGEN,BUN 7 mg/dL (7-18); CALCIUM 8.6 mg/dL (8.5-10.1); CARBON DIOXIDE,CO2 29 mmol/L (21-32); CHLORIDE,CL 97 mmol/L (98-107); CREATININE 0.36 mg/dL (0.70-1.30); GLUCOSE RANDOM 99 mg/dL (70-99); SODIUM,NA 131 mmol/L (136-145)
[2024-04-22 15:15] LABS: ESTIMATED GFR 155 mL/min (>=60)
== END 2024-04-22 16:55 | disposition home or self-care (01) ==
LOC: DL.ED 11:28
DX: G40.909 Epilepsy, unspecified, not intractable, without status epilepticus (principal); E87.1 Hypo-osmolality and hyponatremia; E83.42 Hypomagnesemia; E72.20 Disorder of urea cycle metabolism, unspecified; E03.9 Hypothyroidism, unspecified; Z86.16 Personal history of COVID-19; Z79.890 Hormone replacement therapy; Z79.899 Other long term (current) drug therapy
CPT/HCPCS: 36415; 70450; 80048; 80053; 80305-QW; 80307; 81003; 82140; 82947; 83605; 83735; 84145; 84443; 85025; 85610; 85730; 86140; 93005; 93010; 96361; 96365; 96366; 99284; 99285-25; C1758; J3475; J3490; J7030

== ENCOUNTER 2024-08-01 11:52 | Emergency (ER) | payer MEDICAID ==
[2024-08-01] MEDS: levETIRAcetam in NaCl (iso-os) 2,000 MG in Premix Bag 1 BAG IV ONE (11:57)
[2024-08-01] MEDS ORDERED: Sodium Chloride 0.9% 10 ML Syringe FLUSH PRN (12:11)
[2024-08-01 12:18] LABS: BASOPHILS PERCENT AUTO 0.2 % (0.0-1.0); EOSINOPHILS PERCENT AUTO 0.6 % (1.0-3.0); HEMATOCRIT 35.5 % (40.0-54.0); HEMOGLOBIN 11.8 g/dL (14.0-18.0); LYMPHOCYTES PERCENT AUTO 39.6 % (20.5-50.1); MEAN CORPUSCULAR HEMOGLOBIN 29.1 pg (27.0-34.0); MEAN CORPUSCULAR HGB CONC 33.2 g/dL (33.0-35.0); MEAN CORPUSCULAR VOLUME 87.4 fL (80-100); MONOCYTES PERCENT AUTO 13.7 % (2-8); NEUTROPHILS PERCENT AUTO 45.9 % (42.2-75.2); PLATELET COUNT,PLT 229 10^3/uL (150-450); RED BLOOD CELL COUNT 4.06 10^6/uL (4.6-6.2)
[2024-08-01 12:39] LABS: LACTIC ACID 3.2 mmol/L (0.4-2.0)
[2024-08-01 12:41] LABS: ALANINE AMINOTRANSFERASE,ALT 28 U/L (16-63); ALBUMIN 3.3 g/dL (3.4-5.0); ALKALINE PHOSPHATASE 96 U/L (46-116); ANION GAP 9.1 mEq/L (7-13); ASPARTATE AMNIOTRANSFERASE,AST 13 U/L (15-37); BILIRUBIN TOTAL 0.1 mg/dL (0.2-1.0); BLOOD UREA NITROGEN,BUN 8 mg/dL (7-18); BUN/CREATININE RATIO 20.5 (No establ ref range); C-REACTIVE PROTEIN 0.94 ng/dL (<=0.50); CALCIUM 9.5 mg/dL (8.5-10.1); CARBON DIOXIDE,CO2 31 mmol/L (21-32); CHLORIDE,CL 95 mmol/L (98-107); CREATININE 0.39 mg/dL (0.70-1.30); GLUCOSE RANDOM 83 mg/dL (70-99); MAGNESIUM 1.8 mg/dL (1.8-2.4); POTASSIUM,K 4.1 mmol/L (3.5-5.1); PROTEIN TOTAL,TP 8.6 g/dL (6.4-8.2); SODIUM,NA 131 mmol/L (136-145); TSH ULTRASENSITIVE 0.67 uIU/mL (0.36-3.74)
[2024-08-01 12:42] LABS: A/G RATIO 0.62; ESTIMATED GFR 151 mL/min (>=60)
[2024-08-01] MEDS: Sodium Chloride 0.9% 1,000 ML IV ONE ×2 (12:54→14:15)
[2024-08-01] MEDS: Valproic Acid 250 MG/5 ML Soln 5 ML UD Cup GTUBE ONE (13:03)
[2024-08-01 14:41] LABS: APPEARANCE,URINE CLEAR (CLEAR); BILIRUBIN,URINE NEGATIVE (NEGATIVE); COLOR,URINE YELLOW (YELLOW); GLUCOSE,URINE NEGATIVE (NEGATIVE); KETONES,URINE NEGATIVE (NEGATIVE); LEUKOCYTE ESTERASE,URINE NEGATIVE (NEGATIVE); NITRITE,URINE NEGATIVE (NEGATIVE); OCCULT BLOOD,URINE NEGATIVE (NEGATIVE); PH,URINE 7.5 (5.0-9.0); PROTEIN,URINE NEGATIVE (NEGATIVE); UROBILINOGEN,URINE 0.2 mg/dL (0.2-1.0)
[2024-08-01 15:13] VITALS: BP 135/85; PULSE 76
[2024-08-05 15:42] LABS: LACOSAMIDE, S 2.2 ug/mL (1.0-10.0)
[2024-08-05 21:41] LABS: KEPPRA 73 ug/mL (10-40)
== END 2024-08-01 15:45 | disposition home or self-care (01) ==
LOC: DL.ED 11:52
DX: G40.909 Epilepsy, unspecified, not intractable, without status epilepticus (principal); E87.1 Hypo-osmolality and hyponatremia; E03.9 Hypothyroidism, unspecified; Z96.649 Presence of unspecified artificial hip joint; Z79.890 Hormone replacement therapy; Z79.899 Other long term (current) drug therapy
CPT/HCPCS: 36415; 71045; 80053; 80164; 80177; 80235; 81003; 83605; 83735; 84443; 85025; 86140; 96361; 96365; 99284; A9270; J1953; J7030

== ENCOUNTER 2025-01-27 10:57 | Emergency (ER) | payer MEDICAID ==
[2025-01-27] MEDS ORDERED: Sodium Chloride 0.9% 10 ML Syringe FLUSH PRN (10:59)
[2025-01-27 11:01] VITALS: BP 102/72; PULSE 64
[2025-01-27 11:14] LABS: BASOPHILS PERCENT AUTO 0.1 % (0.0-1.0); EOSINOPHILS PERCENT AUTO 0.1 % (1.0-3.0); HEMOGLOBIN 10.7 g/dL (14.0-18.0); LYMPHOCYTES PERCENT AUTO 16.5 % (20.5-50.1); MEAN CORPUSCULAR HEMOGLOBIN 27.7 pg (27.0-34.0); MEAN CORPUSCULAR HGB CONC 33.4 g/dL (33.0-35.0); MEAN CORPUSCULAR VOLUME 82.9 fL (80-100); MONOCYTES PERCENT AUTO 11.5 % (2-8); NEUTROPHILS PERCENT AUTO 71.8 % (42.2-75.2); PLATELET COUNT,PLT 177 10^3/uL (150-450); RED BLOOD CELL COUNT 3.86 10^6/uL (4.6-6.2)
[2025-01-27 11:25] LABS: APPEARANCE,URINE CLEAR (CLEAR); BILIRUBIN,URINE NEGATIVE (NEGATIVE); COLOR,URINE YELLOW (YELLOW); GLUCOSE,URINE NEGATIVE (NEGATIVE); KETONES,URINE NEGATIVE (NEGATIVE); LEUKOCYTE ESTERASE,URINE NEGATIVE (NEGATIVE); NITRITE,URINE NEGATIVE (NEGATIVE); OCCULT BLOOD,URINE NEGATIVE (NEGATIVE); PH,URINE 8.5 (5.0-9.0); PROTEIN,URINE NEGATIVE (NEGATIVE); UROBILINOGEN,URINE 0.2 mg/dL (0.2-1.0)
[2025-01-27 11:39] LABS: LACTIC ACID 0.9 mmol/L (0.4-2.0)
[2025-01-27 11:45] LABS: A/G RATIO 0.65; ALANINE AMINOTRANSFERASE,ALT 41 U/L (16-63); ALBUMIN 3.2 g/dL (3.4-5.0); ALKALINE PHOSPHATASE 113 U/L (46-116); ANION GAP 9.2 mEq/L (7-13); ASPARTATE AMNIOTRANSFERASE,AST 23 U/L (15-37); BILIRUBIN TOTAL 0.2 mg/dL (0.2-1.0); BLOOD UREA NITROGEN,BUN 8 mg/dL (7-18); BUN/CREATININE RATIO 21.1 (No establ ref range); C-REACTIVE PROTEIN 3.25 ng/dL (<=0.50); CALCIUM 8.9 mg/dL (8.5-10.1); CARBON DIOXIDE,CO2 30 mmol/L (21-32); CHLORIDE,CL 99 mmol/L (98-107); CREATININE 0.38 mg/dL (0.70-1.30); ESTIMATED GFR 152 mL/min (>=60); GLUCOSE RANDOM 88 mg/dL (70-99); MAGNESIUM 1.8 mg/dL (1.8-2.4); POTASSIUM,K 4.2 mmol/L (3.5-5.1); PROTEIN TOTAL,TP 8.1 g/dL (6.4-8.2); SODIUM,NA 134 mmol/L (136-145); TSH ULTRASENSITIVE 0.63 uIU/mL (0.36-3.74)
[2025-01-27] MEDS: levETIRAcetam in NaCl (iso-os) 1,000 MG in Premix Bag 1 BAG IV ONE (11:54)
== END 2025-01-27 13:00 | disposition home or self-care (01) ==
LOC: DL.ED 10:57
DX: R56.9 Unspecified convulsions (principal); E03.9 Hypothyroidism, unspecified; Z79.890 Hormone replacement therapy; Z79.899 Other long term (current) drug therapy; Z86.16 Personal history of COVID-19
CPT/HCPCS: 36415; 80053; 81003; 83605; 83735; 84443; 85025; 86140; 96365; 99284; 99284-25; C1758; J1953

== ENCOUNTER 2025-03-30 10:47 | Emergency (ER) | payer MEDICAID ==
[2025-03-30] MEDS ORDERED: Sodium Chloride 0.9% 10 ML Syringe FLUSH PRN (10:58)
[2025-03-30 11:11] LABS: BASOPHILS PERCENT AUTO 0.0 % (0.0-1.0); EOSINOPHILS PERCENT AUTO 0.3 % (1.0-3.0); LYMPHOCYTES PERCENT AUTO 29.2 % (20.5-50.1); MONOCYTES PERCENT AUTO 7.9 % (2-8); NEUTROPHILS PERCENT AUTO 62.6 % (42.2-75.2); PLATELET COUNT,PLT 84 10^3/uL (150-450); RED BLOOD CELL COUNT 3.69 10^6/uL (4.6-6.2); WHITE BLOOD CELL COUNT,WBC 7.5 10^3/uL (5.0-10.0)
[2025-03-30 11:45] LABS: LACTIC ACID 3.7 mmol/L (0.4-2.0)
[2025-03-30 11:48] LABS: A/G RATIO 0.7; ALANINE AMINOTRANSFERASE,ALT 31 U/L (16-63); ASPARTATE AMNIOTRANSFERASE,AST 31 U/L (15-37); BILIRUBIN TOTAL 0.2 mg/dL (0.2-1.0); BLOOD UREA NITROGEN,BUN 7 mg/dL (7-18); CARBON DIOXIDE,CO2 27 mmol/L (21-32); CREATININE 0.32 mg/dL (0.70-1.30); GLUCOSE RANDOM 77 mg/dL (70-99); PROTEIN TOTAL,TP 8.3 g/dL (6.4-8.2)
[2025-03-30 11:53] LABS: CHLORIDE,CL 87 mmol/L (98-107); POTASSIUM,K 4.8 mmol/L (3.5-5.1); SODIUM,NA 123 mmol/L (136-145)
[2025-03-30 11:55] LABS: ESTIMATED GFR 160 mL/min (>=60)
[2025-03-30 12:35] VITALS: BP 99/59; PULSE 57
== END 2025-03-30 12:48 | disposition home or self-care (01) ==
LOC: DL.ED 10:47
DX: R56.9 Unspecified convulsions (principal); E03.9 Hypothyroidism, unspecified; Z79.890 Hormone replacement therapy; Z79.899 Other long term (current) drug therapy
CPT/HCPCS: 36415; 80053; 83605; 83735; 85025; 86140; 96365; 99284; J1953

== ENCOUNTER 2025-04-07 17:45 | Emergency (ER) | payer MEDICAID ==
[2025-04-07 18:16] LABS: BASOPHILS PERCENT AUTO 0.0 % (0.0-1.0); EOSINOPHILS PERCENT AUTO 0.3 % (1.0-3.0); LYMPHOCYTES PERCENT AUTO 22.7 % (20.5-50.1); MONOCYTES PERCENT AUTO 9.6 % (2-8); NEUTROPHILS PERCENT AUTO 67.4 % (42.2-75.2); PLATELET COUNT,PLT 85 10^3/uL (150-450); RED BLOOD CELL COUNT 3.89 10^6/uL (4.6-6.2); WHITE BLOOD CELL COUNT,WBC 3.1 10^3/uL (5.0-10.0)
[2025-04-07 18:37] LABS: ALANINE AMINOTRANSFERASE,ALT 24 U/L (16-63); ASPARTATE AMNIOTRANSFERASE,AST 15 U/L (15-37); BILIRUBIN DIRECT 0.1 mg/dL (0.0-0.2); BILIRUBIN INDIRECT 0.2; BILIRUBIN TOTAL 0.3 mg/dL (0.2-1.0); BLOOD UREA NITROGEN,BUN 4 mg/dL (7-18); CARBON DIOXIDE,CO2 31 mmol/L (21-32); CHLORIDE,CL 87 mmol/L (98-107); CREATININE 0.23 mg/dL (0.70-1.30); GLUCOSE RANDOM 101 mg/dL (70-99); POTASSIUM,K 3.9 mmol/L (3.5-5.1); PROTEIN TOTAL,TP 7.6 g/dL (6.4-8.2); SODIUM,NA 123 mmol/L (136-145)
[2025-04-07 18:38] LABS: A/G RATIO 0.55; ESTIMATED GFR 177 mL/min (>=60)
[2025-04-07 18:59] LABS: APPEARANCE,URINE CLEAR (CLEAR); GLUCOSE,URINE NEGATIVE (NEGATIVE); OCCULT BLOOD,URINE TRACE-INTACT (NEGATIVE)
[2025-04-07 19:09] LABS: EPITHELIAL CELLS,URINE RARE /HPF (NOT SEEN)
[2025-04-07] MEDS: Levofloxacin/Dextrose 5%-Water 500 MG in Premix Bag 1 BAG IV ONE (21:00)
[2025-04-07 21:26] LABS: O2 DELIVERY DEVICE ROOM AIR
[2025-04-07 21:29] LABS: O2 SATURATION ARTERIAL 84 % (95-100); PCO2 ARTERIAL 46 mmHg (35-45); PH,ARTERIAL 7.40 (7.35-7.45); PO2 ARTERIAL 55 mmHg (70-100)
[2025-04-07 21:30] LABS: BASE EXCESS ARTERIAL 3 mmol/L ((-2)-(+3)); BICARBONATE,ARTERIAL 27.4 mmol/L (22-26)
[2025-04-07 22:05] VITALS: BP 91/57; PULSE 71
[2025-04-11 06:47] LABS: KEPPRA 29.5 ug/mL (10.0-40.0)
== END 2025-04-07 19:53 ==
LOC: DL.ED 17:45
DX: G93.40 Encephalopathy, unspecified (principal); J18.9 Pneumonia, unspecified organism; E03.9 Hypothyroidism, unspecified; E87.1 Hypo-osmolality and hyponatremia; Z79.899 Other long term (current) drug therapy; Z79.890 Hormone replacement therapy
CPT/HCPCS: 36415; 36600; 70450; 71045; 80048; 80076; 80164; 80177; 81001; 82140; 82803; 85025; 87040; 87077; 87186; 96360; 99284; 99285; C1758; J1956; J7030

== ENCOUNTER 2025-04-21 04:46 | Inpatient (IN) | payer MEDICAID ==
[2025-04-21 05:08] LABS: BASOPHILS PERCENT AUTO 0.2 % (0.0-1.0); EOSINOPHILS PERCENT AUTO 0.2 % (1.0-3.0); LYMPHOCYTES PERCENT AUTO 9.5 % (20.5-50.1); MONOCYTES PERCENT AUTO 6.1 % (2-8); NEUTROPHILS PERCENT AUTO 84.0 % (42.2-75.2); O2 DELIVERY DEVICE ROOM AIR; PLATELET COUNT,PLT 204 10^3/uL (150-450); RED BLOOD CELL COUNT 4.27 10^6/uL (4.6-6.2); WHITE BLOOD CELL COUNT,WBC 12.6 10^3/uL (5.0-10.0)
[2025-04-21 05:15] LABS: BASE EXCESS VENOUS 4.6 mmol/l ((-2)-(+3)); BICARBONATE,VENOUS 29 mmol/l (19-25); O2 SATURATION VENOUS 78.9 % (60-80); PCO2 VENOUS 45 mmHg (41-51); PH,VENOUS 7.43 (7.31-7.41); PO2 VENOUS 50 mmHg (35-42)
[2025-04-21 05:28] LABS: ALANINE AMINOTRANSFERASE,ALT 75 U/L (16-63); ASPARTATE AMNIOTRANSFERASE,AST 55 U/L (15-37); BILIRUBIN TOTAL 0.1 mg/dL (0.2-1.0); BLOOD UREA NITROGEN,BUN 11 mg/dL (7-18); CARBON DIOXIDE,CO2 32 mmol/L (21-32); CHLORIDE,CL 95 mmol/L (98-107); CREATININE 0.30 mg/dL (0.70-1.30); GLUCOSE RANDOM 94 mg/dL (70-99); POTASSIUM,K 4.2 mmol/L (3.5-5.1); PROTEIN TOTAL,TP 8.9 g/dL (6.4-8.2); SODIUM,NA 133 mmol/L (136-145)
[2025-04-21 05:31] LABS: INR 1.0 (0.9-1.2); LACTIC ACID 1.3 mmol/L (0.4-2.0)
[2025-04-21 05:37] LABS: A/G RATIO 0.53; ESTIMATED GFR 163 mL/min (>=60)
[2025-04-21 06:08] LABS: APPEARANCE,URINE CLEAR (CLEAR); GLUCOSE,URINE NEGATIVE (NEGATIVE); OCCULT BLOOD,URINE NEGATIVE (NEGATIVE)
[2025-04-21 06:17] LABS: EPITHELIAL CELLS,URINE OCCASIONAL /HPF (NOT SEEN)
[2025-04-21] MEDS ORDERED: Ondansetron 4 MG/2 ML SDV IVPUSH PRN (08:09)
[2025-04-21] MEDS ORDERED: Acetaminophen/HYDROcodone 325-5 MG Tab PO PRN (08:09)
[2025-04-21] MEDS ORDERED: Sennosides/Docusate Sodium 50-8.6 MG Tab PO PRN ×2 (08:09→11:10)
[2025-04-21] MEDS ORDERED: Magnesium Hydroxide 400 MG/5 ML Susp 30 ML Cup PO PRN (08:09)
[2025-04-21] MEDS ORDERED: CLINDAMYCIN PHOSPHATE TOP PRN (08:14)
[2025-04-21] MEDS ORDERED: Non-Formulary Medication 1 Each (Clobetasol [Clobetasol Propionate 0.05% Cream] 15 GM Tube TOP PRN (08:14)
[2025-04-21] MEDS ORDERED: Magnesium Hydroxide 400 MG/5 ML Susp 30 ML Cup GTUBE PRN ×2 (08:14→08:22)
[2025-04-21] MEDS ORDERED: [UNRECOGNIZED DRUG - OTHER] SCH (08:15)
[2025-04-21] MEDS ORDERED: Non-Formulary Medication 1 Each (Risedronate Sodium [Risedronate Sodium] 35 MG Tablet) PO SCH (08:15)
[2025-04-21] MEDS ORDERED: Non-Formulary Medication 1 Each (Ketoconazole [Ketoconazole] 120 ML Shampoo) TP SCH (08:15)
[2025-04-21] MEDS ORDERED: Sennosides/Docusate Sodium 50-8.6 MG Tab GTUBE PRN (08:22)
[2025-04-21] MEDS ORDERED: Acetaminophen/HYDROcodone 325-5 MG Tab GTUBE PRN (08:22)
[2025-04-21] MEDS ORDERED: LEVOCARNITINE 500 MG GTUBE SCH (09:00)
[2025-04-21] MEDS ORDERED: KETOCONAZOLE TOP SCH (09:00)
[2025-04-21] MEDS ORDERED: Non-Formulary Medication 1 Each (Fexofenadine Hcl [Allegra Allergy] 60 MG Tablet) PO SCH (09:00)
[2025-04-21] MEDS ORDERED: Flumazenil 0.1 MG/ML 5 ML MDV IVPUSH PRN (09:57)
[2025-04-21] MEDS: Dexamethasone 4 MG/ML SDV IVPUSH ONE (10:07)
[2025-04-21] MEDS: Valproic Acid 250 MG/5 ML Soln 5 ML UD Cup GTUBE SCH ×2 (10:24→12:44)
[2025-04-21] MEDS: Magnesium Sulfate 2 GM/50 mL 2 GM in Premix Bag 1 BAG IV ONE (11:55)
[2025-04-21] MEDS: Ampicillin/Sulbactam Na 1.5 GM in Sodium Chloride 0.9% 100 ML IV SCH ×2 (13:21→14:09)
[2025-04-21] MEDS: Dexamethasone 4 MG/ML SDV IVPUSH SCH (20:43)
[2025-04-21] MEDS: TRETINOIN TOP SCH (22:11)
[2025-04-21] MEDS: LACOSAMIDE 50 MG PO SCH (22:30)
[2025-04-22 06:16] LABS: BASOPHILS PERCENT AUTO 0.0 % (0.0-1.0); EOSINOPHILS PERCENT AUTO 0.0 % (1.0-3.0); LYMPHOCYTES PERCENT AUTO 8.9 % (20.5-50.1); MONOCYTES PERCENT AUTO 4.2 % (2-8); NEUTROPHILS PERCENT AUTO 86.9 % (42.2-75.2); PLATELET COUNT,PLT 197 10^3/uL (150-450); RED BLOOD CELL COUNT 3.33 10^6/uL (4.6-6.2); WHITE BLOOD CELL COUNT,WBC 20.5 10^3/uL (5.0-10.0)
[2025-04-22 06:40] LABS: ALANINE AMINOTRANSFERASE,ALT 45 U/L (16-63); ASPARTATE AMNIOTRANSFERASE,AST 24 U/L (15-37); BILIRUBIN TOTAL 0.2 mg/dL (0.2-1.0); BLOOD UREA NITROGEN,BUN 11 mg/dL (7-18); CARBON DIOXIDE,CO2 27 mmol/L (21-32); CHLORIDE,CL 102 mmol/L (98-107); CREATININE 0.23 mg/dL (0.70-1.30); GLUCOSE RANDOM 103 mg/dL (70-99); POTASSIUM,K 3.7 mmol/L (3.5-5.1); PROTEIN TOTAL,TP 7.6 g/dL (6.4-8.2); SODIUM,NA 137 mmol/L (136-145)
[2025-04-22 06:41] LABS: A/G RATIO 0.52; ESTIMATED GFR 177 mL/min (>=60)
[2025-04-22] MEDS: MICONAZOLE 2% TOP SCH (08:34)
[2025-04-22] MEDS: VANCOmycin 1.5 GM/300 ML 1.5 GM in Premix Bag 1 BAG IV SCH (10:03)
[2025-04-22] MEDS: VITAMIN D3 GTUBE SCH (21:19)
[2025-04-22] MEDS: SOY ISOFLAVONE GTUBE SCH (21:19)
[2025-04-22] MEDS: [UNRECOGNIZED DRUG - OTHER] GTUBE SCH (21:19)
[2025-04-23 06:48] LABS: BASOPHILS PERCENT AUTO 0.0 % (0.0-1.0); EOSINOPHILS PERCENT AUTO 0.0 % (1.0-3.0); LYMPHOCYTES PERCENT AUTO 11.0 % (20.5-50.1); MONOCYTES PERCENT AUTO 6.0 % (2-8); NEUTROPHILS PERCENT AUTO 83.0 % (42.2-75.2); PLATELET COUNT,PLT 203 10^3/uL (150-450); RED BLOOD CELL COUNT 3.24 10^6/uL (4.6-6.2); WHITE BLOOD CELL COUNT,WBC 12.1 10^3/uL (5.0-10.0)
[2025-04-23 07:14] LABS: ALANINE AMINOTRANSFERASE,ALT 33 U/L (16-63); ASPARTATE AMNIOTRANSFERASE,AST 16 U/L (15-37); BILIRUBIN TOTAL 0.2 mg/dL (0.2-1.0); BLOOD UREA NITROGEN,BUN 10 mg/dL (7-18); CARBON DIOXIDE,CO2 25 mmol/L (21-32); CHLORIDE,CL 106 mmol/L (98-107); CREATININE 0.22 mg/dL (0.70-1.30); GLUCOSE RANDOM 98 mg/dL (70-99); POTASSIUM,K 3.7 mmol/L (3.5-5.1); PROTEIN TOTAL,TP 7.4 g/dL (6.4-8.2); SODIUM,NA 141 mmol/L (136-145); VANCOMYCIN RANDOM 18.3 ug/mL (No Normal Range)
[2025-04-23 07:15] LABS: A/G RATIO 0.51; ESTIMATED GFR 179 mL/min (>=60)
[2025-04-23] MEDS: Magnesium Sulfate 2 GM/50 mL 2 GM in Premix Bag 1 BAG IV ONE (10:20)
[2025-04-23] MEDS: Iopamidol 612 MG/ML 100 ML Bottle IVPUSH ONE (11:21)
[2025-04-23] MEDS: Sodium Chloride 0.9% 10 ML Syringe FLUSH PRN (21:53)
[2025-04-24 06:48] LABS: BASOPHILS PERCENT AUTO 0.1 % (0.0-1.0); EOSINOPHILS PERCENT AUTO 0.0 % (1.0-3.0); LYMPHOCYTES PERCENT AUTO 18.1 % (20.5-50.1); MONOCYTES PERCENT AUTO 3.1 % (2-8); NEUTROPHILS PERCENT AUTO 78.7 % (42.2-75.2); PLATELET COUNT,PLT 191 10^3/uL (150-450); RED BLOOD CELL COUNT 3.00 10^6/uL (4.6-6.2); WHITE BLOOD CELL COUNT,WBC 8.3 10^3/uL (5.0-10.0)
[2025-04-24 07:05] LABS: ALANINE AMINOTRANSFERASE,ALT 22 U/L (16-63); ASPARTATE AMNIOTRANSFERASE,AST 13 U/L (15-37); BILIRUBIN TOTAL 0.2 mg/dL (0.2-1.0); BLOOD UREA NITROGEN,BUN 11 mg/dL (7-18); CARBON DIOXIDE,CO2 26 mmol/L (21-32); CHLORIDE,CL 107 mmol/L (98-107); CREATININE 0.23 mg/dL (0.70-1.30); GLUCOSE RANDOM 99 mg/dL (70-99); POTASSIUM,K 4.0 mmol/L (3.5-5.1); PROTEIN TOTAL,TP 6.9 g/dL (6.4-8.2); SODIUM,NA 143 mmol/L (136-145)
[2025-04-24 07:07] LABS: A/G RATIO 0.50; ESTIMATED GFR 177 mL/min (>=60)
[2025-04-24] MEDS: Magnesium Sulfate 2 GM/50 mL 2 GM in Premix Bag 1 BAG IV ONE ×2 (09:30→16:05)
[2025-04-24] MEDS: Iopamidol 755 Mg/ML 100 ML Bottle IVPUSH ONE (10:21)
[2025-04-24] MEDS: Atropine 0.1 MG/ML 10 ML Syringe IVPUSH STA (10:37)
[2025-04-24] MEDS: Lactulose Soln 10 GM/15 ML 30 ML UD Cup GTUBE ONE (18:01)
[2025-04-24] MEDS: Atropine 0.1 MG/ML 10 ML Syringe IVPUSH ONE (22:50)
[2025-04-25] MEDS: Atropine 0.1 MG/ML 10 ML Syringe IVPUSH PRN (01:39)
[2025-04-25 09:00] LABS: BASOPHILS PERCENT AUTO 0.2 % (0.0-1.0); EOSINOPHILS PERCENT AUTO 0.0 % (1.0-3.0); LYMPHOCYTES PERCENT AUTO 37.8 % (20.5-50.1); MONOCYTES PERCENT AUTO 6.3 % (2-8); NEUTROPHILS PERCENT AUTO 55.7 % (42.2-75.2); PLATELET COUNT,PLT 240 10^3/uL (150-450); RED BLOOD CELL COUNT 3.35 10^6/uL (4.6-6.2); WHITE BLOOD CELL COUNT,WBC 6.3 10^3/uL (5.0-10.0)
[2025-04-25 09:20] LABS: ALANINE AMINOTRANSFERASE,ALT 60.0 U/L (16-63); ASPARTATE AMNIOTRANSFERASE,AST 42.0 U/L (15-37); BILIRUBIN TOTAL 0.1 mg/dL (0.2-1.0); BLOOD UREA NITROGEN,BUN 11.0 mg/dL (7-18); CARBON DIOXIDE,CO2 31.0 mmol/L (21-32); CHLORIDE,CL 108.0 mmol/L (98-107); CREATININE 0.44 mg/dL (0.70-1.30); EST CRCL DRUG DOSING (CG) 195.77 mL/min; GLUCOSE RANDOM 95.0 mg/dL (70-99); POTASSIUM,K 3.8 mmol/L (3.5-5.1); PROTEIN TOTAL,TP 7.7 g/dL (6.4-8.2); SODIUM,NA 145.0 mmol/L (136-145)
[2025-04-25 09:22] LABS: A/G RATIO 0.51; ESTIMATED GFR 145.0 mL/min (>=60)
[2025-04-25] MEDS: Levofloxacin/Dextrose 5%-Water 150 ML IV SCH (10:06)
[2025-04-25 13:12] VITALS: BP 115/59; PULSE 87
== END 2025-04-25 14:25 | DRG 177 ==
LOC: DL.ED 04:46 → DL.MS 06:20 → UNDOADMIN 07:38 → DL.MS 07:38
PROVIDERS: ADMIT Internal Medicine; ATTEND Internal Medicine
DX: J69.0 Pneumonitis due to inhalation of food and vomit (principal); E43 Unspecified severe protein-calorie malnutrition; J96.01 Acute respiratory failure with hypoxia; G80.0 Spastic quadriplegic cerebral palsy; J86.9 Pyothorax without fistula; E87.1 Hypo-osmolality and hyponatremia; K59.00 Constipation, unspecified; E03.9 Hypothyroidism, unspecified; Z96.649 Presence of unspecified artificial hip joint; H47.619 Cortical blindness, unspecified side of brain; R13.12 Dysphagia, oropharyngeal phase; E87.8 Other disorders of electrolyte and fluid balance, not elsewhere classified; E83.52 Hypercalcemia; E83.42 Hypomagnesemia; R74.01 Elevation of levels of liver transaminase levels; G40.909 Epilepsy, unspecified, not intractable, without status epilepticus; I95.9 Hypotension, unspecified; R00.1 Bradycardia, unspecified; B96.1 Klebsiella pneumoniae [K. pneumoniae] as the cause of diseases classified elsewhere; B96.20 Unspecified Escherichia coli [E. coli] as the cause of diseases classified elsewhere; R41.82 Altered mental status, unspecified; Z79.899 Other long term (current) drug therapy; Z79.890 Hormone replacement therapy
CPT/HCPCS: 36415; 71045; 80053; 81001; 82803; 83605; 83735; 84484 ×2; 85025; 85610; 87040 ×2; 93005; 93010; 96360; 99284; 99285; C1758; J7030; 51702; 74177; 80202; 86140; 87070; 87077; 87186; 99223; 99233; 99238; A4320; A9270-GY; J0295; J0461; J1100; J1956; J2470; J3360; J3373; J3374; J3375; J3475; J7040; J7050; Q9967

== ENCOUNTER 2025-05-25 22:21 | Emergency (ER) | payer MEDICAID ==
[2025-05-25 22:47] VITALS: BP 138/88; PULSE 95
[2025-05-26] MEDS ORDERED: Sodium Chloride 0.9% 10 ML Syringe FLUSH PRN (00:05)
[2025-05-26 00:36] LABS: BASOPHILS PERCENT AUTO 0.1 % (0.0-1.0); EOSINOPHILS PERCENT AUTO 0.3 % (1.0-3.0); LYMPHOCYTES PERCENT AUTO 42.2 % (20.5-50.1); MONOCYTES PERCENT AUTO 18.5 % (2-8); NEUTROPHILS PERCENT AUTO 38.9 % (42.2-75.2); PLATELET COUNT,PLT 188 10^3/uL (150-450); RED BLOOD CELL COUNT 3.62 10^6/uL (4.6-6.2); WHITE BLOOD CELL COUNT,WBC 6.9 10^3/uL (5.0-10.0)
[2025-05-26 00:54] LABS: BLOOD UREA NITROGEN,BUN 12 mg/dL (7-18); CARBON DIOXIDE,CO2 32 mmol/L (21-32); CHLORIDE,CL 99 mmol/L (98-107); CREATININE 0.32 mg/dL (0.70-1.30); GLUCOSE RANDOM 88 mg/dL (70-99); POTASSIUM,K 4.1 mmol/L (3.5-5.1); SODIUM,NA 139 mmol/L (136-145)
[2025-05-26 00:55] LABS: ALANINE AMINOTRANSFERASE,ALT 27 U/L (16-63); ASPARTATE AMNIOTRANSFERASE,AST 21 U/L (15-37); BILIRUBIN TOTAL 0.1 mg/dL (0.2-1.0); PROTEIN TOTAL,TP 7.3 g/dL (6.4-8.2)
[2025-05-26 00:56] LABS: A/G RATIO 0.62; ESTIMATED GFR 160 mL/min (>=60)
[2025-05-26 01:44] LABS: APPEARANCE,URINE CLEAR (CLEAR); GLUCOSE,URINE NEGATIVE (NEGATIVE); OCCULT BLOOD,URINE NEGATIVE (NEGATIVE)
[2025-05-26 01:53] LABS: EPITHELIAL CELLS,URINE FEW /HPF (NOT SEEN)
== END 2025-05-26 03:11 | disposition home or self-care (01) ==
LOC: DL.ED 22:21
DX: R56.9 Unspecified convulsions (principal); E03.9 Hypothyroidism, unspecified; Z79.899 Other long term (current) drug therapy
CPT/HCPCS: 36415; 80053; 81001; 85025; 99285; C1758; 99284